=== PATIENT | male | born 1950 | race Caucasian/White ===

== ENCOUNTER 2016-11-18 15:35 | Inpatient (IN) | payer OTHER ==
[2016-11-18] VITALS (7 sets, daily range): BP systolic 132–171; BP diastolic 74–86; PULSE 56–70; TEMP 36.4–37.2; O2SAT 95–97; Ht 177.8 cm; Wt 77.2 kg
[~2016-11-18] VITALS: Ht 177.8 cm; Wt 77.2 kg
[2016-11-18] MEDS ORDERED: LACTATED RINGER'S 1000ML 1,000 ML IV SCH (16:00)
[2016-11-18] MEDS ORDERED: CEFAZOLIN 1000MG/55 ML D5W IV SCH (16:15)
[2016-11-18] MEDS ORDERED: PROPOFOL IV EMULSION 10 MG/ML 20 ML VIAL IV ONE (16:33)
[2016-11-18] MEDS ORDERED: LIDOCAINE HCL 2% 2 ML VIAL (20MG/ML) ONE (16:33)
[2016-11-18] MEDS ORDERED: SUCCINYLCHOLINE CHLORIDE 20 MG/ML 10 ML VIAL IV ONE (16:33)
[2016-11-18] MEDS ORDERED: MIDAZOLAM HCL 1 MG/ML 2ML VIAL ONE (16:36)
[2016-11-18] MEDS ORDERED: FENTANYL CITRATE INJ 50 MCG/1 ML 2 ML VIAL ONE (16:37)
--- NOTE | 2016-11-18 16:50 | History & Physical Bridge Note ---
H&P Re-Evaluation Bridge Note: I have examined the patient, reviewed the History & Physical and in the interval since the performance of the History & Physical I have noted the following changes of clinical significance: No changes noted
[2016-11-18] MEDS ORDERED: CEFAZOLIN SOD 1 GM VIAL ONE (17:09)
[2016-11-18] MEDS ORDERED: OXYCODONE HCL IR 5 MG TAB (IMMEDIATE RELEASE) PO PRN (17:15)
[2016-11-18] MEDS ORDERED: ZOLPIDEM TARTRATE 5 MG TAB PO PRN (17:15)
[2016-11-18] MEDS ORDERED: DiphenhydrAMINE HCL 50 MG/ML VIAL IV PRN (17:15)
[2016-11-18] MEDS ORDERED: SOD PHOSPHATE/SOD BIPHOSPHATE ENEMA 132 ML BTL PR PRN (17:15)
[2016-11-18] MEDS ORDERED: NAPROXEN 250 MG TAB PO PRN (17:15)
[2016-11-18] MEDS ORDERED: ALUMINUM/MAGNESIUM/SIMETH (MAALOX MAX) 30 ML UDC PO PRN (17:15)
[2016-11-18] MEDS ORDERED: METOCLOPRAMIDE HCL INJ 5 MG/ML 2 ML VIAL IV PRN (17:15)
[2016-11-18] MEDS ORDERED: MAGNESIUM HYDROXIDE SUSP 30 ML UDC PO PRN (17:15)
[2016-11-18] MEDS ORDERED: ALBUTEROL HFA 8 GM INHALER INH PRN (17:15)
[2016-11-18] MEDS ORDERED: ONDANSETRON INJ 2 MG/ML 2 ML VIAL IV PRN ×2 (17:15→18:00)
[2016-11-18] MEDS ORDERED: NITROGLYCERIN 0.4 MG SL PER TAB CHARGE SL PRN (17:15)
[2016-11-18] MEDS ORDERED: BISACODYL 10 MG SUPP PR PRN (17:15)
[2016-11-18] MEDS ORDERED: NAPR-1169 PO (17:16)
[2016-11-18] MEDS ORDERED: VITATAB11 PO (17:16)
[2016-11-18] MEDS ORDERED: LINA1TAB PO (17:16)
[2016-11-18] MEDS ORDERED: NTRGSL/4 SL (17:16)
[2016-11-18] MEDS ORDERED: CALC-20 PO (17:16)
[2016-11-18] MEDS ORDERED: FLUO5CRE TOP (17:16)
[2016-11-18] MEDS ORDERED: OMEG10007 PO (17:16)
[2016-11-18] MEDS ORDERED: ASPI81TA28 PO (17:16)
[2016-11-18] MEDS ORDERED: RANI150T3 PO (17:16)
[2016-11-18] MEDS ORDERED: METF500T5 PO (17:16)
[2016-11-18] MEDS ORDERED: ALBUAER INH (17:16)
[2016-11-18] MEDS ORDERED: BISO10TA14 PO (17:16)
[2016-11-18] MEDS ORDERED: MAGN400T6 PO (17:16)
[2016-11-18] MEDS ORDERED: AZEL30SP NAE (17:16)
[2016-11-18] MEDS ORDERED: HYDR-5688 PO (17:16)
[2016-11-18] MEDS ORDERED: BACITRACIN 50,000 UNITS IR ONE (17:33)
--- NOTE | 2016-11-18 17:48 | [facility] Post Operative Brief Note ---
Immediate Operative Summary Operative Date Nov 18, 2016. Pre-Operative Diagnosis infected wound rt foot Post-Operative Diagnosis infected wound right foot Procedure(s) Performed I and d WOUND RIGHT FOOT Surgeon DARYN Cheese Processor Surgeon(s) NONE Estimated Blood Loss 2CC Findings CELLULITIS WOUND RIGHT FOOT Specimens CULTURE AEROBIC ANAEROBIC Complication(s) None Disposition Recovery Room / PACU
[2016-11-18] MEDS ORDERED: MoRPHine SULFATE 10 MG/ML CARP/VIAL IV PRN (18:00)
[2016-11-18] MEDS ORDERED: EpHEDrine SULFATE INJ 50 MG/ML AMP IV PRN (18:00)
[2016-11-18] MEDS ORDERED: ATROPINE SULFATE 0.1 MG/ML 5ML SYR IV PRN (18:00)
[2016-11-18] MEDS ORDERED: FENTANYL CITRATE INJ 50 MCG/1 ML 2 ML VIAL IV PRN (18:00)
--- NOTE | 2016-11-18 18:01 | HISTORY & PHYSICAL EXAMINATION ---
DATE OF ADMISSION: 11/18/2016 HISTORY OF PRESENT ILLNESS: The patient presents, being seen and evaluated with complaints of cellulitis right foot. The patient had bunion surgery 2 weeks prior to feeling well and developed cellulitis progressively over the last week. He has been on Bactrim as well as Keflex, continued to progress with cellulitis, swelling and seropurulent drainage from his foot. The patient presented to the hospital today for admission, intravenous antibiotics infectious disease, I\T\D possible wound VAC, possible open packing. PAST SURGICAL HISTORY: Significant for diabetes, hypertension. ALLERGIES: None. MEDICATIONS: See list. PAST MEDICAL HISTORY: Is otherwise unremarkable. See history of present illness for pertinent positives. PHYSICAL EXAMINATION: HEENT: Otherwise unremarkable. HEART: Irregular at 72 beats per minute. LUNGS: Clear. No rales, rhonchi, or wheezes noted. ABDOMEN: Soft, nontender, nondistended. Bowel sounds are present in all 4 quadrants. RECTAL: No rectal performed. MUSCULOSKELETAL: Consistent with that of a cellulitic draining ostial wound of the first metatarsophalangeal joint of the right foot after having had previous bunion surgery. ASSESSMENT AND PLAN: The patient presents for incision and drainage, intravenous antibiotics, Pulsavac, possible open packing, possible wound VAC pending findings at time of surgery, postoperative pain management, deep venous thrombosis prophylaxis, diabetes management pending findings at time of surgery [facility]
[2016-11-18 18:08] LABS: HEMATOCRIT 38.9 % (42-52)
--- NOTE | 2016-11-18 18:09 | OPERATIVE REPORT ---
DATE OF ADMISSION: 11/18/2016 PREOPERATIVE DIAGNOSIS: Infected wound, right foot first metatarsophalangeal joint. POSTOPERATIVE DIAGNOSIS: Same. PROCEDURE: Incision and drainage, washout, cellulitic infected wound, right foot. SURGEON: Dr. Murray. ANESTHESIA: General. COMPLICATIONS: None. ESTIMATED BLOOD LOSS: 3 mL. HISTORY: The patient presents as a very pleasant 66-year-old white male with complaints of a cellulitic drainage of the wound of his right foot. He had a previous hallux rigidus surgery performed and has drainage purulent and consistent with infection, previous cultures is that of coag negative Staph aureus. DESCRIPTION OF PROCEDURE: After proper draping of the right lower extremity 6 liters of sterile saline solution with bacitracin impregnated were washed through and irrigated through the wound. The wound was irrigated down to stable bed of bleeding tissue. All particulate matter and debris was removed. The wound was packed widely with iodoform gauze and dressed with sterile compressive dressing. The patient was subsequently taken to the recovery room in stable condition.
--- NOTE | 2016-11-18 18:17 | Anesthesiology Progress Note ---
Anesthesia Post Op Note Date & Time Nov 18, 2016 at 18:17 Vital Signs Pain Intensity: 0 Vital Signs Past 12 Hours Date Time Temp Pulse Resp B/P Pulse Ox O2 Delivery O2 Flow Rate FiO2 11/18/16 18:10 79 16 160/91 100 Mask 10 11/18/16 18:00 68 16 166/88 100 Mask 10 11/18/16 17:54 36.2 64 16 159/83 100 10 11/18/16 16:11 36.4 63 20 162/82 97 Room Air Notes Mental Status: alert / awake / arousable Nausea / Vomiting: adequately controlled Pain: adequately controlled Airway Patency, RR, SpO2: stable & adequate BP & HR: stable & adequate Hydration State: stable & adequate Anesthetic Complications: no major complications apparent
[2016-11-18] MEDS: FERROUS GLUCONATE 324 MG TAB PO SCH (20:17)
[2016-11-18] MEDS: POTASSIUM CHLORIDE INJ 10 MEQ in SODIUM CHLORIDE 0.9% 1000ML 1,000 ML IV SCH (20:17)
[2016-11-18] MEDS: SENNA 8.6 MG TAB PO SCH (20:33)
[2016-11-18] MEDS: DOCUSATE SODIUM 100 MG CAP PO SCH (20:34)
[2016-11-18] MEDS: RANITIDINE HCL 150 MG TAB PO SCH (20:34)
[2016-11-18] MEDS ORDERED: CLONIDINE HCL 0.1 MG TAB PO PRN (21:45)
--- NOTE | 2016-11-18 21:53 | Medical Consult ---
Consultation Date of Consultation: Nov 18, 2016. Attending Physician: Anton Murray D.O. Reason for Consultation: Elevated Blood Pressure History of Present Illness Very pleasant 66 year old male with history of CAD, DM, HTN presenting with right foot I&D Patient noted to have development of right foot cellulitis after a bunion surgery. He was placed on courses of Bactrim and Cephalexin with no improvement. Today, Dr. Murray performed a right foot foot I&D under general anesthesias. Cultures were obtained and pending. This evening, BP was noted be elevated at systolic 170s. On exam, patient is seen sitting up in bed, comfortable overall. Right foot pain is better, mild at present. Denies chest pain, dyspnea, headaches, dizziness, nausea. No other symptoms. Family History unremarkable Social History Smoking Status: Never Smoker Smokeless Tobacco Use: No Alcohol Use: none Drug Use: none Allergies Coded Allergies: KATE Inhibitors (Verified Adverse Reaction, Intermediate, COUGH, 11/18/16) Allopurinol (Verified Adverse Reaction, Intermediate, DIZZINESS, 11/18/16) Atorvastatin (Verified Adverse Reaction, Intermediate, MUSCLE ACHES, 11/18) Azithromycin (Verified Adverse Reaction, Intermediate, HIVES, 11/18/16) Carvedilol (Verified Adverse Reaction, Intermediate, SE'S, 11/18/16) Fenofibrate (Verified Adverse Reaction, Intermediate, MYALGIAS, 11/18/16) Irbesartan (Verified Adverse Reaction, Intermediate, LIGHT HEADEDNESS, ) Lansoprazole (Verified Adverse Reaction, Intermediate, BURNING, 11/18/16) Lisinopril (Verified Adverse Reaction, Intermediate, DIZZINESS, 11/18/16) Metoprolol (Verified Adverse Reaction, Intermediate, HAND PAIN , EDEMA, ) Nortriptyline (Verified Adverse Reaction, Intermediate, HIT CHEEKS, ) Olmesartan (Verified Adverse Reaction, Intermediate, DIARRHEA, 11/18/16) Pantoprazole (Verified Adverse Reaction, Intermediate, GI UPSET, 11/18/16) Pitavastatin (Verified Adverse Reaction, Intermediate, MUSCLE ACHES, 11/18) Valsartan (Verified Adverse Reaction, Intermediate, HIVES, 11/18/16) Home Medications as noted in Med Rec Current Inpatient Medications Current Inpatient Medications Medications (Trade) Dose Ordered Sig/Joey Route Start Time Stop Time Status Last Admin Dose Admin Lactated Ringer's 1,000 ml @ 15 mls/hr Q24H IV 11/18/16 16:00 11/18/16 23:59 11/18/16 16:15 15 MLS/HR Potassium Chloride/Sodium Chloride (KCl Inj/Nss 1000ml) 1,005 ml @ 100 mls/hr Q10H3M IV 11/18/16 20:00 12/18/16 19:59 11/18/16 20:17 100 MLS/HR Oxycodone HCl (Roxicodone Immediate Rel Tab) 1-2 TABS FOR PAIN 1 TABLET ... Q4H PRN PO 11/18/16 17:15 12/02/16 17:14 Oxycodone/ Acetaminophen (Percocet 5-325MG Tab) 1-2 TABLETS 1 TABLET ... Q6H PRN PO 11/18/16 17:15 12/02/16 17:14 Magnesium Hydroxide (Milk Of Magnesia Susp) 30 ml Q6H PRN PO 11/18/16 17:15 12/18/16 17:14 Bisacodyl (Dulcolax Supp) 10 mg DAILY PRN DE 11/18/16 17:15 12/18/16 17:14 Sodium Biphosphate/ Sodium Phosphate (Fleet Enema) 132 ml DAILY PRN DE 11/18/16 17:15 12/18/16 17:14 Senna (Senokot Tab) 17.2 mg HS PO 11/18/16 21:00 12/18/16 20:59 11/18/16 20:33 17.2 MG Docusate Sodium (coLACE CAP) 100 mg BID PO 11/18/16 21:00 12/18/16 20:59 11/18/16 20:34 100 MG Diphenhydramine HCl (Benadryl Cap) 25 mg Q8H PRN PO 11/18/16 17:15 12/18/16 17:14 Diphenhydramine HCl (Benadryl Inj) 25 mg Q8H PRN IV 11/18/16 17:15 12/18/16 17:14 Al Hydrox/Mg Hydrox/Simethicone (Maalox Max Susp) 15 ml Q4H PRN PO 11/18/16 17:15 12/18/16 17:14 Zolpidem Tartrate (Ambien Tab) 5 mg HSZ PRN PO 11/18/16 17:15 12/18/16 17:14 Multivitamins (Multivitamin Tab) 1 tab QAM PO 11/19/16 09:00 12/19/16 08:59 Ondansetron HCl (Zofran Inj) 4 mg Q6H PRN IV 11/18/16 17:15 12/18/16 17:14 Metoclopramide HCl (Reglan Inj) 10 mg Q6H PRN IV 11/18/16 17:15 12/18/16 17:14 Ferrous Gluconate (Ferrous Gluconate Tab) 324 mg TIDM PO 11/18/16 20:00 12/18/16 19:59 11/18/16 20:17 324 MG Pantoprazole Sodium 40 mg 40 mg QAM PO 11/19/16 09:00 12/19/16 08:59 Cefazolin Sodium/ Dextrose (Ancef Iv/D5 50ml) 55 ml @ 100 mls/hr Q8H IV 11/19/16 02:00 11/19/16 10:32 Albuterol (Ventolin Hfa Inhaler) 2 puffs Q4H PRN INH 11/18/16 17:15 12/18/16 17:14 Aspirin (Ecotrin Tab) 81 mg DAILY PO 11/19/16 09:00 12/19/16 08:59 Metformin HCl (Glucophage Extended Rel Tab) 500 mg QDD PO 11/19/16 17:45 12/19/16 17:44 Naproxen (Naprosyn Tab) 500 mg BID PRN PO 11/18/16 17:15 12/18/16 17:14 Nitroglycerin (Nitrostat Tab) 0.4 mg UD PRN SL 11/18/16 17:15 12/18/16 17:14 Ranitidine HCl (zANTac TAB) 150 mg BID PO 11/18/16 21:00 12/18/16 20:59 11/18/16 20:34 150 MG Miscellaneous Information (Order Awaiting Action) 1 ea QS N/A 11/19/16 00:00 12/19/16 00:00 Bisoprolol Fumarate (Bisoprolol Fumarate) 10 mg DAILY PO 11/19/16 09:00 12/19/16 08:59 Calcium/Vitamin D (Caltrate Plus Tab) 1 tab DAILY PO 11/19/16 09:00 12/19/16 08:59 Miscellaneous Information (Order Awaiting Action) 1 ea QS N/A 11/19/16 00:00 12/19/16 00:00 Miscellaneous Information (Order Awaiting Action) 1 ea QS N/A 11/19/16 00:00 12/19/16 00:00 Fentanyl Citrate (Fentanyl Inj) 50 mcg UD PRN IV 11/18/16 18:00 11/18/16 23:00 Morphine Sulfate (MoRPHine SULFATE INJ) 4 mg Q5M PRN IV 11/18/16 18:00 11/18/16 23:00 Ondansetron HCl (Zofran Inj) 4 mg Q6 PRN IV 11/18/16 18:00 11/18/16 23:00 Ephedrine Sulfate (EpHEDrine SULFATE INJ) 5 mg Q5M PRN IV 11/18/16 18:00 11/18/16 23:00 Atropine Sulfate (Atropine Sulfate 0.1MG/Ml Inj) 0.5 mg Q1M PRN IV 11/18/16 18:00 11/18/16 23:00 Hydrochlorothiazide (Hydrochlorothiazide Tab) 6.25 mg DAILY PO 11/19/16 09:00 12/19/16 08:59 Review of Systems Constitutional- no fever; no weight loss Eyes- no acute visual changes ENT- no sinus drainage; no pharyngitis Pulmonary- no cough, no wheezing, no shortness of breath Cardiac- no chest pain, no palpitations, no orthopnea, no dependent edema GI- no nausea, no vomiting, no diarrhea, no melena, no hematochezia - no dysuria, no hematuria Musculoskeletal- no arthralgias, no myalgias Derm- no rashes, no new skin lesions, no changing skin lesions Hematologic- no unusual bruising, no unusual bleeding Lymphatics- no adenopathy Endocrine- no polyuria or polydipsia; no heat or cold intolerance Neuro- no headaches, no focal neurologic symptoms Psych- no anxiety, no depression Physical Exam Date Time Temp Pulse Resp B/P Pulse Ox O2 Delivery O2 Flow Rate FiO2 11/18/16 19:20 Room Air 12/21/16 19:20 36.6 70 16 154/83 Room Air 70 11/18/16 18:50 36.6 75 16 155/94 95 Room Air 11/18/16 18:40 36.6 74 16 153/95 95 Room Air 11/18/16 18:30 36.6 74 16 165/87 95 Room Air 11/18/16 18:20 76 16 157/91 96 Room Air 11/18/16 18:10 79 16 160/91 100 Mask 10 11/18/16 18:00 68 16 166/88 100 Mask 10 11/18/16 17:54 36.2 64 16 159/83 100 10 11/18/16 16:11 36.4 63 20 162/82 97 Room Air General Appearance: WD/WN, no apparent distress Head: normocephalic, atraumatic Eyes: normal inspection, PERRL, EOMI, sclerae normal ENT: normal ENT inspection, hearing grossly normal, pharynx normal Neck: supple, no adenopathy, thyroid normal, no JVD, trachea midline Respiratory/Chest: chest non-tender, lungs clear, normal breath sounds, no respiratory distress, no accessory muscle use Cardiovascular: regular rate, rhythm, no edema, no murmur Abdomen/GI: normal bowel sounds, non tender, soft Back: normal inspection Extremities/Musculoskelatal: no calf tenderness, no pedal edema (only left foot examined as right leg was wrapped), + pertinent finding (right foot and lower leg wrapped in dressing) Neurologic/Psych: toby maker II-XII nml as tested, no motor/sensory deficits, alert, normal mood/affect, normal reflexes, oriented x 3 Skin: normal color Lymphatic: no adenopathy Laboratory Results Last 24 Hours Test 11/18/16 18:04 Hemoglobin 13.5 g/dL Hematocrit 38.9 % Assessment & Plan 66 year old male with history of CAD, DM, HTN who is presenting with elevated blood pressure after Right Foot Incision and Drainage this morning. ELEVATED BLOOD PRESSURE HISTORY OF HYPERTENSION likely from post op stress, pain asymptomatic already took his usual Bisoprolol/HCTZ 10/6.25mg po this morning PRN Clonidine for systolic bp > 160 ordered continue usual Bisoprolol/HCTZ decrease IV fluid rate monitor RIGHT FOOT CELLULITIS s/p I&D post op day 0 noted after bunion surgery, did not respond to Bactrim or Keflex wound cultures from 11/16: Group G beta strep, Coag neg staph will transition from Cefazolin to Zosyn IV tonight for broader coverage including gram negatives, anaerobes, Pseudomonas while awaiting ID recommendations DM TYPE 2 usually on Linagliptin and Metformin monitor BSGs AC and HS, ISS ordered HISTORY OF CAD no cardiac symptoms on Aspirin, Bisoprolol Thank you for this consultation. We will follow the patient with you during their hospital stay. You can reach a member of the [facility] Hospitalist Team 21/06 via pager @ [phone].
[2016-11-18] MEDS ORDERED: GLUCOSE 40% GEL 15 GM TUBE PO PRN (22:00)
[2016-11-18] MEDS ORDERED: DEXTROSE 50% 50 ML SYR IV PRN (22:00)
[2016-11-18] MEDS ORDERED: GLUCOSE 10 TABS/TUBE PO PRN (22:00)
[2016-11-18] MEDS ORDERED: GLUCAGON FOR INJ 1 MG VIAL SQ PRN (22:00)
[2016-11-18] MEDS ORDERED: PIPERACILL/TAZOBAC CONSULT ACTIVE PRN (22:15)
[2016-11-18] MEDS ORDERED: PIPERACILL/TAZOBAC IV 3.375 GM in DEXTROSE 5% 100ML IV ONE (22:15)
[2016-11-18 23:40] LABS: BUN/CREATININE RATIO 20.3 (10-20); CALCIUM 8.7 mg/dl (8.5-10.1); CREATININE 1.2 mg/dl (0.60-1.40); POTASSIUM 4.6 mmol/L (3.5-5.1)
[2016-11-19] MEDS ORDERED: CEFAZOLIN IV 1,000 MG in DEXTROSE 5% 50ML 50 ML IV SCH (02:00)
[2016-11-19 03:13] VITALS: BP 124/62; PULSE 57; TEMP 37.2; O2SAT 94
[2016-11-19] MEDS: PIPERACILL/TAZOBAC IV 3.375 GM in DEXTROSE 5% 100ML IV SCH ×3 (03:52→20:23)
[2016-11-19] MEDS: OXYCODONE/ACETAMINOPHEN 5-325 TAB PO PRN (03:57)
[2016-11-19 07:40] LABS: HEMATOCRIT 36.9 % (42-52); MEAN CELL VOLUME 90.2 fL (80-100); MEAN CORPUSCULAR HEMOGLOBIN 31.3 pg (25-34); MEAN CORPUSCULAR HGB CONC 34.7 g/dl (32-36); MEAN PLATELET VOLUME 9.6 fL (7.4-10.4); PLATELET COUNT 136 K/uL (130-400); RED BLOOD COUNT 4.09 M/uL (4.7-6.1); WHITE BLOOD COUNT 5.82 K/uL (4.8-10.8)
[2016-11-19] MEDS: INSULIN ASPART 100 UNITS/ML 3 ML PEN SC SCH ×4 (08:00→21:00)
[2016-11-19 08:10] VITALS: BP 121/67; PULSE 53; TEMP 36.7; O2SAT 94
[2016-11-19 08:10] LABS: BUN/CREATININE RATIO 17.9 (10-20); CALCIUM 8.1 mg/dl (8.5-10.1); CREATININE 1.3 mg/dl (0.60-1.40); POTASSIUM 4.5 mmol/L (3.5-5.1)
--- NOTE | 2016-11-19 08:54 | Orthopedic Progress Note ---
Orthopedic Progress Note Date of Service Nov 19, 2016. Subjective Post OP Day: 1 Reports: feeling well, pain controlled w PO medications, Denies: SOB, calf pain , chest pain, complaints, light headedness, nausea / vomiting Objective calves soft nontender, N/V intact, capillary refill less than 2 sec., dressing C /D/I, A&O x3, toes mobile Date Time Temp Pulse Resp B/P Pulse Ox O2 Delivery O2 Flow Rate FiO2 11/19/16 08:10 36.7 53 16 121/67 94 Room Air 11/19/16 03:13 37.2 57 18 124/62 94 Room Air 11/18/16 22:55 37.1 56 16 132/75 96 Room Air 11/18/16 22:30 37.1 60 17 144/74 96 Room Air 11/18/16 21:15 37.2 63 17 171/86 97 Room Air 11/18/16 20:20 36.9 67 18 171/79 95 Room Air 11/18/16 19:50 36.5 66 16 154/85 95 Room Air 11/18/16 19:20 Room Air 11/18/16 19:20 Room Air 11/18/16 19:20 36.6 70 16 154/83 Room Air 70 11/18/16 18:50 36.6 75 16 155/94 95 Room Air 11/18/16 18:40 36.6 74 16 153/95 95 Room Air 11/18/16 18:30 36.6 74 16 165/87 95 Room Air 11/18/16 18:20 76 16 157/91 96 Room Air 11/18/16 18:10 79 16 160/91 100 Mask 10 11/18/16 18:00 68 16 166/88 100 Mask 10 11/18/16 17:54 36.2 64 16 159/83 100 10 11/18/16 16:11 36.4 63 20 162/82 97 Room Air Laboratory Results 24 Hours: Test 11/18/16 18:04 11/19/16 06:40 Hematocrit 38.9 % 36.9 % Hemoglobin 13.5 g/dL 12.8 g/dL Assessment & Plan Assessment: POD #1 s/p I and d WOUND RIGHT FOOT -will consult Infectious Disease -ice/elevate -plan for repeat I&D tomorrow am, will keep NPO p MN tonight
[2016-11-19] MEDS ORDERED: NON-FORMULARY MEDICATION (Vitamins W/ Lipotropics (Lipoflavonoid) 1 TAB) PO SCH (09:00)
--- NOTE | 2016-11-19 09:32 | Medical Consult ---
Consultation Date of Consultation: Nov 19, 2016. Attending Physician: Anton Murray D.O. Reason for Consultation: Foot infection History of Present Illness 66-year-old male with history of diabetes mellitus and hypertension underwent right bunionectomy approximately 2 weeks ago. Over the last 2-3 days, has noted rapid onset of redness and swelling with severe pain associated with fever and chills with progressive purplish discoloration of his foot. no response to oral antibiotics. He now has been admitted to the hospital and has undergone surgical incision and drainage . Cultures are pending thus far. Prior outpatient cultures growing a group G beta strep, As well as coag- negative staph. Patient currently being treated with IV Zosyn. Feels significantly better after surgery and with antibiotics. Currently afebrile. Denies any other significant systemic complaints. Past Medical/Surgical History PMH: DM, HTN PSH: Bunionectomy Family History Noncontributory Social History Smoking Status: Never Smoker Smokeless Tobacco Use: No Alcohol Use: none Drug Use: none Allergies Coded Allergies: KATE Inhibitors (Verified Adverse Reaction, Intermediate, COUGH, 11/18/16) Allopurinol (Verified Adverse Reaction, Intermediate, DIZZINESS, 11/18/16) Atorvastatin (Verified Adverse Reaction, Intermediate, MUSCLE ACHES, 11/18) Azithromycin (Verified Adverse Reaction, Intermediate, HIVES, 11/18/16) Carvedilol (Verified Adverse Reaction, Intermediate, SE'S, 11/18/16) Fenofibrate (Verified Adverse Reaction, Intermediate, MYALGIAS, 11/18/16) Irbesartan (Verified Adverse Reaction, Intermediate, LIGHT HEADEDNESS, ) Lansoprazole (Verified Adverse Reaction, Intermediate, BURNING, 11/18/16) Lisinopril (Verified Adverse Reaction, Intermediate, DIZZINESS, 11/18/16) Metoprolol (Verified Adverse Reaction, Intermediate, HAND PAIN , EDEMA, ) Nortriptyline (Verified Adverse Reaction, Intermediate, HIT CHEEKS, ) Olmesartan (Verified Adverse Reaction, Intermediate, DIARRHEA, 11/18/16) Pantoprazole (Verified Adverse Reaction, Intermediate, GI UPSET, 11/18/16) Pitavastatin (Verified Adverse Reaction, Intermediate, MUSCLE ACHES, 11/18) Valsartan (Verified Adverse Reaction, Intermediate, HIVES, 11/18/16) Current Inpatient Medications Current Inpatient Medications Medications (Trade) Dose Ordered Sig/Joey Route Start Time Stop Time Status Last Admin Dose Admin Potassium Chloride/Sodium Chloride (KCl Inj/Nss 1000ml) 1,005 ml @ 60 mls/hr [id number] IV 11/18/16 20:00 12/18/16 19:59 11/18/16 20:17 100 MLS/HR Oxycodone HCl (Roxicodone Immediate Rel Tab) 1-2 TABS FOR PAIN 1 TABLET ... Q4H PRN PO 11/18/16 17:15 12/02/16 17:14 Oxycodone/ Acetaminophen (Percocet 5-325MG Tab) 1-2 TABLETS 1 TABLET ... Q6H PRN PO 11/18/16 17:15 12/02/16 17:14 11/19/16 03:57 1 TAB Magnesium Hydroxide (Milk Of Magnesia Susp) 30 ml Q6H PRN PO 11/18/16 17:15 12/18/16 17:14 Bisacodyl (Dulcolax Supp) 10 mg DAILY PRN NE 11/18/16 17:15 12/18/16 17:14 Sodium Biphosphate/ Sodium Phosphate (Fleet Enema) 132 ml DAILY PRN NE 11/18/16 17:15 12/18/16 17:14 Senna (Senokot Tab) 17.2 mg HS PO 11/18/16 21:00 12/18/16 20:59 11/18/16 20:33 17.2 MG Docusate Sodium (coLACE CAP) 100 mg BID PO 11/18/16 21:00 12/18/16 20:59 11/18/16 20:34 100 MG Diphenhydramine HCl (Benadryl Cap) 25 mg Q8H PRN PO 11/18/16 17:15 12/18/16 17:14 Diphenhydramine HCl (Benadryl Inj) 25 mg Q8H PRN IV 11/18/16 17:15 12/18/16 17:14 Al Hydrox/Mg Hydrox/Simethicone (Maalox Max Susp) 15 ml Q4H PRN PO 11/18/16 17:15 12/18/16 17:14 Zolpidem Tartrate (Ambien Tab) 5 mg HSZ PRN PO 11/18/16 17:15 12/18/16 17:14 Multivitamins (Multivitamin Tab) 1 tab QAM PO 11/19/16 09:00 12/19/16 08:59 Ondansetron HCl (Zofran Inj) 4 mg Q6H PRN IV 11/18/16 17:15 12/18/16 17:14 Metoclopramide HCl (Reglan Inj) 10 mg Q6H PRN IV 11/18/16 17:15 12/18/16 17:14 Ferrous Gluconate (Ferrous Gluconate Tab) 324 mg TIDM PO 11/18/16 20:00 12/18/16 19:59 11/18/16 20:17 324 MG Pantoprazole Sodium (Protonix Tab) 40 mg QAM PO 11/19/16 09:00 12/19/16 08:59 Albuterol (Ventolin Hfa Inhaler) 2 puffs Q4H PRN INH 11/18/16 17:15 12/18/16 17:14 Aspirin (Ecotrin Tab) 81 mg DAILY PO 11/19/16 09:00 12/19/16 08:59 Metformin HCl (Glucophage Extended Rel Tab) 500 mg QDD PO 11/19/16 17:45 12/19/16 17:44 Naproxen (Naprosyn Tab) 500 mg BID PRN PO 11/18/16 17:15 12/18/16 17:14 Nitroglycerin (Nitrostat Tab) 0.4 mg UD PRN SL 11/18/16 17:15 12/18/16 17:14 Ranitidine HCl (zANTac TAB) 150 mg BID PO 11/18/16 21:00 12/18/16 20:59 11/18/16 20:34 150 MG Miscellaneous Information (Order Awaiting Action) 1 ea QS N/A 11/19/16 00:00 12/19/16 00:00 Bisoprolol Fumarate (Bisoprolol Fumarate) 10 mg DAILY PO 11/19/16 09:00 12/19/16 08:59 Calcium/Vitamin D (Caltrate Plus Tab) 1 tab DAILY PO 11/19/16 09:00 12/19/16 08:59 Miscellaneous Information (Order Awaiting Action) 1 ea QS N/A 11/19/16 00:00 12/19/16 00:00 Miscellaneous Information (Order Awaiting Action) 1 ea QS N/A 11/19/16 00:00 12/19/16 00:00 Hydrochlorothiazide (Hydrochlorothiazide Tab) 6.25 mg DAILY PO 11/19/16 09:00 12/19/16 08:59 Clonidine HCl (Catapres Tab) 0.1 mg Q6H PRN PO 11/18/16 21:45 12/18/16 21:44 11/18/16 22:00 0.1 MG Piperacillin Sod/ Tazobactam Sod (Consult) 1 ea UD PRN N/A 11/18/16 22:15 12/18/16 22:14 Insulin Aspart (novoLOG ASPART) SLIDING SCALE If C... ACHS SC 11/19/16 08:00 12/19/16 07:59 Glucose (Glucose 40% Gel) 15-30 GRAMS 15 GRAMS... UD PRN PO 11/18/16 22:00 12/18/16 21:59 Glucose (Glucose Chew Tab) 4-8 Tablets 4 Tabl... UD PRN PO 11/18/16 22:00 12/18/16 21:59 Dextrose (Dextrose 50% 50ML Syringe) 25-50ML OF 50% DW IV FOR... UD PRN IV 11/18/16 22:00 12/18/16 21:59 Glucagon 1 mg 1 mg UD PRN SQ 11/18/16 22:00 12/18/16 21:59 Piperacillin Sod/ Tazobactam Sod/ Dextrose (Zosyn Iv/D5 100ml) 115 ml @ 28.75 mls/ hr Q8H IV 11/19/16 04:00 11/29/16 03:59 11/19/16 03:52 28.75 MLS/HR Review of Systems All systems were reviewed and are negative except as per HPI Physical Exam Date Time Temp Pulse Resp B/P Pulse Ox O2 Delivery O2 Flow Rate FiO2 11/19/16 08:10 36.7 53 16 121/67 94 Room Air 11/19/16 03:13 37.2 57 18 124/62 94 Room Air 11/18/16 22:55 37.1 56 16 132/75 96 Room Air 11/18/16 22:30 37.1 60 17 144/74 96 Room Air 11/18/16 21:15 37.2 63 17 171/86 97 Room Air 11/18/16 20:20 36.9 67 18 171/79 95 Room Air 11/18/16 19:50 36.5 66 16 154/85 95 Room Air 11/18/16 19:20 Room Air 11/18/16 19:20 Room Air 11/18/16 19:20 36.6 70 16 154/83 Room Air 70 11/18/16 18:50 36.6 75 16 155/94 95 Room Air 11/18/16 18:40 36.6 74 16 153/95 95 Room Air 11/18/16 18:30 36.6 74 16 165/87 95 Room Air 11/18/16 18:20 76 16 157/91 96 Room Air 11/18/16 18:10 79 16 160/91 100 Mask 10 11/18/16 18:00 68 16 166/88 100 Mask 10 11/18/16 17:54 36.2 64 16 159/83 100 10 11/18/16 16:11 36.4 63 20 162/82 97 Room Air General Appearance: WD/WN, no apparent distress Head: normocephalic, atraumatic Eyes: normal inspection, EOMI, sclerae normal ENT: normal ENT inspection, hearing grossly normal, pharynx normal Neck: supple, no adenopathy, thyroid normal, trachea midline Respiratory/Chest: chest non-tender, lungs clear, normal breath sounds, no respiratory distress Cardiovascular: regular rate, rhythm, no gallop, no murmur Abdomen/GI: normal bowel sounds, non tender, soft, no organomegaly Back: normal inspection, no CVA tenderness Extremities/Musculoskelatal: no calf tenderness, normal capillary refill Neurologic/Psych: alert, oriented x 3 Skin: normal color, no rash, + pertinent finding (surgical dressing in place right foot) Lymphatic: no adenopathy Laboratory Results Date/Time Source Procedure Growth Status 11/18/16 17:27 Abscess Foot Right Gram Stain - Final Resulted 11/18/16 17:27 Abscess Foot Right Bacterial Culture Pending Resulted Last 24 Hours Test 11/18/16 18:04 11/18/16 22:50 11/19/16 06:40 Hemoglobin 13.5 g/dL 12.8 g/dL Hematocrit 38.9 % 36.9 % Sodium Level 134 mmol/L 134 mmol/L Potassium Level 4.6 mmol/L 4.5 mmol/L Chloride Level 101 mmol/L 101 mmol/L Carbon Dioxide Level 25 mmol/L 26 mmol/L Anion Gap 8.0 mmol/L 7.0 mmol/L Blood Urea Nitrogen 24 mg/dl 23 mg/dl Creatinine 1.20 mg/dl 1.30 mg/dl Est Creatinine Clear Calc Drug Dose 61.7 ml/min 56.9 ml/min Estimated GFR () 72.1 65.4 Estimated GFR (Non- 62.2 56.5 BUN/Creatinine Ratio 20.3 17.9 Random Glucose 192 mg/dl 152 mg/dl Calcium Level 8.7 mg/dl 8.1 mg/dl White Blood Count 5.82 K/uL Red Blood Count 4.09 M/uL Mean Corpuscular Volume 90.2 fL Mean Corpuscular Hemoglobin 31.3 pg Mean Corpuscular Hemoglobin Concent 34.7 g/dl RDW Standard Deviation 41.3 fL RDW Coefficient of Variation 12.5 % Platelet Count 136 K/uL Mean Platelet Volume 9.6 fL Assessment & Plan Right foot infection following bunion surgery, likely Group G strep primary pathogen. Patient to be continued on Zosyn pending operative cultures. Likely repeat I+D tomorrow. Will follow and adjust Abx once final cultures available. May want to consider PICC placement as likely will need IV ABX for at least several more days.
[2016-11-19] MEDS: FERROUS GLUCONATE 324 MG TAB PO SCH ×3 (09:48→17:45)
[2016-11-19] MEDS: MULTIVITAMIN TAB PO SCH (09:48)
[2016-11-19] MEDS: DOCUSATE SODIUM 100 MG CAP PO SCH ×2 (09:49→21:19)
[2016-11-19] MEDS: PANTOprazole SOD 40 MG TAB PO SCH (09:49)
[2016-11-19] MEDS: ASPIRIN 81 MG ECTAB PO SCH (09:50)
[2016-11-19] MEDS: CALCIUM 600MG + VIT D 400 IU TAB PO SCH (09:50)
[2016-11-19] MEDS: HYDROCHLOROTHIAZIDE 25 MG TAB PO SCH (09:50)
[2016-11-19] MEDS: BISOPROLOL FUMARATE 5 MG TAB PO SCH (09:51)
[2016-11-19] MEDS: RANITIDINE HCL 150 MG TAB PO SCH ×2 (09:51→21:20)
[2016-11-19 10:39] LABS: ESTIMATED AVERAGE GLUCOSE 134 mg/dl; HA1C FLAG Normal (Normal)
[2016-11-19 11:39] VITALS: BP 161/80; PULSE 56; TEMP 36.7; O2SAT 97
[2016-11-19] MEDS: POTASSIUM CHLORIDE INJ 10 MEQ in SODIUM CHLORIDE 0.9% 1000ML 1,000 ML IV SCH (12:16)
[2016-11-19 15:08] VITALS: BP 124/68; PULSE 56; TEMP 37.2; O2SAT 94
--- NOTE | 2016-11-19 16:42 | Progress Note ---
Internal Med Progress Note Date of Service: Nov 19, 2016. Provider Documentation: SUBJECTIVE: Patient c/o pain in RLE. No fever, chills, chest pain, SOB, nausea, vomiting OBJECTIVE: Vital Signs-as noted below Exam: General Appearance: WD/WN, no apparent distress Neck: supple, no adenopathy, thyroid normal, no JVD, trachea midline Respiratory/Chest: chest non-tender, lungs clear, normal breath sounds, no respiratory distress, no accessory muscle use Cardiovascular: regular rate, rhythm, no edema, no murmur Abdomen/GI: normal bowel sounds, non tender, soft Back: normal inspection Extremities/Musculoskelatal: no calf tenderness, no pedal edema (only left foot examined as right leg was wrapped), + pertinent finding (right foot and lower leg wrapped in dressing) Lab data as noted below. ASSESSMENT & PLAN: 66 year old male with history of CAD, DM, HTN who is presenting with elevated blood pressure after Right Foot Incision and Drainage this morning. HYPERTENSION likely from post op stress, pain -PRN Clonidine for systolic bp > 160 ordered -Continue usual Bisoprolol/HCTZ - IV fluid rate -monitor RIGHT FOOT CELLULITIS s/p I&D post op day 0 -noted after bunion surgery, did not respond to Bactrim or Keflex -wound cultures from 11/16: Group G beta strep, Coag neg staph -Continue with Zosyn IV while awaiting operative wound cxs. For I & D again tomorrow -Per ID, may need PICC line DM TYPE 2 usually on Linagliptin and Metformin -monitor BSGs AC and HS, ISS ordered HISTORY OF CAD -no cardiac symptoms -on Aspirin, Bisoprolol DVT PROPHYLAXIS SCDS For I & D in AM DISPOSITION Per primary team Vital Signs: Date Time Temp Pulse Resp B/P Pulse Ox O2 Delivery O2 Flow Rate FiO2 11/19/16 15:08 37.2 56 18 124/68 94 Room Air 11/19/16 11:39 36.7 56 16 161/80 97 Room Air 11/19/16 08:10 36.7 53 16 121/67 94 Room Air 11/19/16 07:45 Room Air 11/19/16 03:13 37.2 57 18 124/62 94 Room Air 11/18/16 22:55 37.1 56 16 132/75 96 Room Air 11/18/16 22:30 37.1 60 17 144/74 96 Room Air 11/18/16 21:15 37.2 63 17 171/86 97 Room Air 11/18/16 20:20 36.9 67 18 171/79 95 Room Air 11/18/16 19:50 36.5 66 16 154/85 95 Room Air 11/18/16 19:20 Room Air 11/18/16 19:20 Room Air 11/18/16 19:20 36.6 70 16 154/83 Room Air 70 11/18/16 18:50 36.6 75 16 155/94 95 Room Air 11/18/16 18:40 36.6 74 16 153/95 95 Room Air 11/18/16 18:30 36.6 74 16 165/87 95 Room Air 11/18/16 18:20 76 16 157/91 96 Room Air 11/18/16 18:10 79 16 160/91 100 Mask 10 11/18/16 18:00 68 16 166/88 100 Mask 10 11/18/16 17:54 36.2 64 16 159/83 100 10 Lab Results: Results Past 24 Hours Test 11/18/16 18:04 11/18/16 22:50 11/19/16 06:40 11/19/16 08:06 Range/Units Hemoglobin 13.5 12.8 14.0-18.0 g/dL Hematocrit 38.9 36.9 42-52 % Sodium Level 134 134 136-145 mmol/L Potassium Level 4.6 4.5 3.5-5.1 mmol/L Chloride Level 101 101 98-107 mmol/L Carbon Dioxide Level 25 26 21-32 mmol/L Anion Gap 8.0 7.0 3-11 mmol/L Blood Urea Nitrogen 24 23 7-18 mg/dl Creatinine 1.20 1.30 0.60-1.40 mg/dl Est Creatinine Clear Calc Drug Dose 61.7 56.9 ml/min Estimated GFR () 72.1 65.4 Estimated GFR (Non- 62.2 56.5 BUN/Creatinine Ratio 20.3 17.9 10-20 Random Glucose 192 152 70-99 mg/dl Calcium Level 8.7 8.1 8.5-10.1 mg/dl White Blood Count 5.82 4.8-10.8 K/uL Red Blood Count 4.09 4.7-6.1 M/uL Mean Corpuscular Volume 90.2 80-100 fL Mean Corpuscular Hemoglobin 31.3 25-34 pg Mean Corpuscular Hemoglobin Concent 34.7 32-36 g/dl RDW Standard Deviation 41.3 36.4-46.3 fL RDW Coefficient of Variation 12.5 11.5-14.5 % Platelet Count 136 130-400 K/uL Mean Platelet Volume 9.6 7.4-10.4 fL Estimated Average Glucose 134 mg/dl Hemoglobin A1c 6.3 4.5-5.6 % Bedside Glucose 98 70-99 mg/dl Test 11/19/16 11:56 Range/Units Bedside Glucose 133 70-99 mg/dl Microbiology Results 11/18/16 Gram Stain - Final, Resulted 11/18/16 Bacterial Culture - Preliminary, Resulted NO GROWTH TO DATE.
[2016-11-19] MEDS: METFORMIN HCL 500 MG TABCR PO SCH (17:48)
[2016-11-19 18:51] VITALS: BP 142/77; PULSE 53; TEMP 37; O2SAT 94
[2016-11-19] MEDS: SENNA 8.6 MG TAB PO SCH (21:00)
[2016-11-19 23:28] VITALS: BP 143/77; PULSE 56; TEMP 36.8; O2SAT 96
[2016-11-20] VITALS (8 sets, daily range): BP systolic 132–160; BP diastolic 79–88; PULSE 55–68; TEMP 36.4–37.5; O2SAT 93–95
[2016-11-20] MEDS ORDERED: NURSING DECISION MEDICATION ORDER SCH ×2 (01:15→15:00)
[2016-11-20] MEDS: PIPERACILL/TAZOBAC IV 3.375 GM in DEXTROSE 5% 100ML IV SCH ×3 (03:39→20:37)
[2016-11-20] MEDS: POTASSIUM CHLORIDE INJ 10 MEQ in SODIUM CHLORIDE 0.9% 1000ML 1,000 ML IV SCH ×2 (03:42→20:42)
[2016-11-20] MEDS: INSULIN ASPART 100 UNITS/ML 3 ML PEN SC SCH ×4 (06:00→20:39)
[2016-11-20 06:16] LABS: HEMATOCRIT 39.4 % (42-52); MEAN CELL VOLUME 89.3 fL (80-100); MEAN CORPUSCULAR HEMOGLOBIN 31.1 pg (25-34); MEAN CORPUSCULAR HGB CONC 34.8 g/dl (32-36); MEAN PLATELET VOLUME 9.4 fL (7.4-10.4); PLATELET COUNT 135 K/uL (130-400); RED BLOOD COUNT 4.41 M/uL (4.7-6.1); WHITE BLOOD COUNT 5.75 K/uL (4.8-10.8)
[2016-11-20 06:50] LABS: BUN/CREATININE RATIO 16.1 (10-20); CALCIUM 8.9 mg/dl (8.5-10.1); CREATININE 1.4 mg/dl (0.60-1.40); POTASSIUM 4.2 mmol/L (3.5-5.1)
[2016-11-20] MEDS ORDERED: FENTANYL CITRATE INJ 50 MCG/1 ML 2 ML VIAL ONE (07:10)
[2016-11-20] MEDS ORDERED: MIDAZOLAM HCL 1 MG/ML 2ML VIAL ONE (07:10)
[2016-11-20] MEDS: FERROUS GLUCONATE 324 MG TAB PO SCH ×3 (08:24→18:06)
[2016-11-20] MEDS ORDERED: EpHEDrine SULFATE INJ 50 MG/ML AMP IV PRN (09:00)
[2016-11-20] MEDS ORDERED: ONDANSETRON INJ 2 MG/ML 2 ML VIAL IV PRN ×2 (09:00→11:00)
[2016-11-20] MEDS ORDERED: ATROPINE SULFATE 0.1 MG/ML 5ML SYR IV PRN (09:00)
[2016-11-20] MEDS ORDERED: PROPOFOL IV EMULSION 10 MG/ML 20 ML VIAL IV ONE (10:13)
[2016-11-20] MEDS ORDERED: ONDANSETRON INJ 2 MG/ML 2 ML VIAL ONE (10:13)
[2016-11-20] MEDS ORDERED: LIDOCAINE HCL 2% 2 ML VIAL (20MG/ML) ONE (10:13)
[2016-11-20] MEDS ORDERED: POTASSIUM CHLORIDE INJ 10 MEQ in SODIUM CHLORIDE 0.9% 1000ML 1,000 ML IV SCH (10:47)
[2016-11-20] MEDS ORDERED: BISACODYL 10 MG SUPP PR PRN (11:00)
[2016-11-20] MEDS ORDERED: DiphenhydrAMINE HCL 50 MG/ML VIAL IV PRN (11:00)
[2016-11-20] MEDS ORDERED: ALUMINUM/MAGNESIUM/SIMETH (MAALOX MAX) 30 ML UDC PO PRN (11:00)
[2016-11-20] MEDS ORDERED: METOCLOPRAMIDE HCL INJ 5 MG/ML 2 ML VIAL IV PRN (11:00)
[2016-11-20] MEDS ORDERED: OXYCODONE/ACETAMINOPHEN 5-325 TAB PO PRN (11:00)
[2016-11-20] MEDS ORDERED: SOD PHOSPHATE/SOD BIPHOSPHATE ENEMA 132 ML BTL PR PRN (11:00)
[2016-11-20] MEDS ORDERED: ZOLPIDEM TARTRATE 5 MG TAB PO PRN (11:00)
[2016-11-20] MEDS ORDERED: MAGNESIUM HYDROXIDE SUSP 30 ML UDC PO PRN (11:00)
[2016-11-20] MEDS ORDERED: BACITRACIN 50,000 UNITS IR ONE (11:06)
[2016-11-20] MEDS: FENTANYL CITRATE INJ 50 MCG/1 ML 2 ML VIAL IV PRN ×2 (11:20→11:25)
--- NOTE | 2016-11-20 11:21 | OPERATIVE REPORT ---
DATE OF OPERATION: 11/20/2016 PREOPERATIVE DIAGNOSIS: Infected wound, right foot first metatarsophalangeal joint. POSTOPERATIVE DIAGNOSIS: Same. PROCEDURE: I\T\D of wound with placement of wound VAC, right first metatarsophalangeal joint. SURGEON: Dr. Murray. ANESTHESIA: General. COMPLICATIONS: None. GROSS FINDINGS: The patient is a very pleasant 66-year-old white male who presents. 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 The wound was markedly improved today as compared to Wednesday. After thorough irrigation and debridement of 6 liters of sterile saline solution with bacitracin, the wound was irrigated. Subsequently, a wound VAC was placed on the wound and the patient was subsequently taken to the recovery room in stable condition. I attest to the content of the Intraoperative Record and any orders documented therein. Any exceptio ns are noted below.
[2016-11-20] MEDS ORDERED: FERROUS GLUCONATE 324 MG TAB PO SCH (12:30)
--- NOTE | 2016-11-20 12:48 | Anesthesiology Progress Note ---
Anesthesia Post Op Note Date & Time Nov 20, 2016 at 12:47 Vital Signs Pain Intensity: 0.0 Vital Signs Past 12 Hours Date Time Temp Pulse Resp B/P Pulse Ox O2 Delivery O2 Flow Rate FiO2 11/20/16 12:25 36.4 64 16 152/82 95 Nasal Cannula 2.0 11/20/16 11:50 95 Nasal Cannula 2.0 11/20/16 11:50 95 Nasal Cannula 2.0 11/20/16 11:50 37.2 65 16 150/87 95 Nasal Cannula 2.0 11/20/16 11:44 63 154/90 98 Nasal Cannula 2 11/20/16 11:30 37.8 63 158/86 97 Nasal Cannula 2 11/20/16 11:20 64 158/90 98 Nasal Cannula 2 11/20/16 11:10 62 160/87 100 Mask 10 11/20/16 11:00 67 151/92 99 Mask 10 11/20/16 10:54 36.4 16 166/98 100 Mask 10 11/20/16 07:46 37.5 62 16 160/81 94 Room Air Notes Mental Status: alert / awake / arousable, participated in evaluation Pt Amnestic to Procedure: Yes Nausea / Vomiting: adequately controlled Pain: adequately controlled Airway Patency, RR, SpO2: stable & adequate BP & HR: stable & adequate Hydration State: stable & adequate Anesthetic Complications: no major complications apparent
[2016-11-20] MEDS: ASPIRIN 81 MG ECTAB PO SCH (13:00)
[2016-11-20] MEDS: CALCIUM 600MG + VIT D 400 IU TAB PO SCH (13:00)
[2016-11-20] MEDS: RANITIDINE HCL 150 MG TAB PO SCH ×2 (13:01→20:37)
[2016-11-20] MEDS: MULTIVITAMIN TAB PO SCH (13:01)
[2016-11-20] MEDS: PANTOprazole SOD 40 MG TAB PO SCH (13:01)
[2016-11-20] MEDS: HYDROCHLOROTHIAZIDE 25 MG TAB PO SCH (13:02)
[2016-11-20] MEDS: BISOPROLOL FUMARATE 5 MG TAB PO SCH (13:03)
[2016-11-20] MEDS: DOCUSATE SODIUM 100 MG CAP PO SCH ×2 (13:03→20:37)
--- NOTE | 2016-11-20 13:44 | Progress Note ---
Internal Med Progress Note Date of Service: Nov 20, 2016. Provider Documentation: SUBJECTIVE: Patient c/o pain in RLE. No fever, chills, chest pain, SOB, nausea, vomiting S/P RLE foot I and D and wound vac placement OBJECTIVE: Vital Signs-as noted below Exam: General Appearance: WD/WN, no apparent distress Neck: supple, no adenopathy, thyroid normal, no JVD, trachea midline Respiratory/Chest: chest non-tender, lungs clear, normal breath sounds, no respiratory distress, no accessory muscle use Cardiovascular: regular rate, rhythm, no edema, no murmur Abdomen/GI: normal bowel sounds, non tender, soft Back: normal inspection Extremities/Musculoskelatal: no calf tenderness, no pedal edema (only left foot examined as right leg was wrapped), + pertinent finding (right foot with wound vac) Lab data as noted below. ASSESSMENT & PLAN: 66 year old male with history of CAD, DM, HTN who is presenting with elevated blood pressure after Right Foot Incision and Drainage this morning. HYPERTENSION likely from post op stress, pain, better now -PRN Clonidine for systolic bp > 160 ordered -Continue usual Bisoprolol/HCTZ - IV fluid rate -monitor RIGHT FOOT CELLULITIS s/p I&D post op day on S/P I/T/D with wound vac today 11/20/16 -noted after bunion surgery, did not respond to Bactrim or Keflex -wound cultures from 11/16: Group G beta strep, Coag neg staph -Continue with Zosyn IV while awaiting operative wound cxs from today. From - cultures negative -Per ID, may need PICC line DM TYPE 2 usually on Linagliptin and Metformin -monitor BSGs AC and HS, ISS ordered HISTORY OF CAD -no cardiac symptoms -on Aspirin, Bisoprolol DVT PROPHYLAXIS SCDS For I & D in AM DISPOSITION Per primary team Vital Signs: Date Time Temp Pulse Resp B/P Pulse Ox O2 Delivery O2 Flow Rate FiO2 11/20/16 12:50 37.0 68 16 155/88 94 Room Air 11/20/16 12:25 36.4 64 16 152/82 95 Nasal Cannula 2.0 11/20/16 11:50 95 Nasal Cannula 2.0 11/20/16 11:50 95 Nasal Cannula 2.0 11/20/16 11:50 37.2 65 16 150/87 95 Nasal Cannula 2.0 11/20/16 11:44 63 154/90 98 Nasal Cannula 2 11/20/16 11:30 37.8 63 158/86 97 Nasal Cannula 2 11/20/16 11:20 64 158/90 98 Nasal Cannula 2 11/20/16 11:10 62 160/87 100 Mask 10 11/20/16 11:00 67 151/92 99 Mask 10 11/20/16 10:54 36.4 16 166/98 100 Mask 10 11/20/16 07:46 37.5 62 16 160/81 94 Room Air 11/20/16 00:15 Room Air 11/19/16 23:28 36.8 56 18 143/77 96 Room Air 11/19/16 18:51 37.0 53 18 142/77 94 Room Air 11/19/16 16:00 Room Air 11/19/16 15:08 37.2 56 18 124/68 94 Room Air Lab Results: Results Past 24 Hours Test 11/19/16 16:46 11/19/16 20:37 11/20/16 05:50 11/20/16 05:57 Range/Units Bedside Glucose 133 103 107 70-99 mg/dl White Blood Count 5.75 4.8-10.8 K/uL Red Blood Count 4.41 4.7-6.1 M/uL Hemoglobin 13.7 14.0-18.0 g/dL Hematocrit 39.4 42-52 % Mean Corpuscular Volume 89.3 80-100 fL Mean Corpuscular Hemoglobin 31.1 25-34 pg Mean Corpuscular Hemoglobin Concent 34.8 32-36 g/dl RDW Standard Deviation 39.8 36.4-46.3 fL RDW Coefficient of Variation 12.5 11.5-14.5 % Platelet Count 135 130-400 K/uL Mean Platelet Volume 9.4 7.4-10.4 fL Sodium Level 136 136-145 mmol/L Potassium Level 4.2 3.5-5.1 mmol/L Chloride Level 101 98-107 mmol/L Carbon Dioxide Level 26 21-32 mmol/L Anion Gap 9.0 3-11 mmol/L Blood Urea Nitrogen 23 7-18 mg/dl Creatinine 1.40 0.60-1.40 mg/dl Est Creatinine Clear Calc Drug Dose 52.9 ml/min Estimated GFR () 59.8 Estimated GFR (Non- 51.6 BUN/Creatinine Ratio 16.1 10-20 Random Glucose 114 70-99 mg/dl Calcium Level 8.9 8.5-10.1 mg/dl Test 11/20/16 11:05 Range/Units Bedside Glucose 96 70-99 mg/dl Microbiology Results 11/20/16 Gram Stain, Received Pending 11/20/16 Bacterial Culture, Received Pending 11/20/16 Gram Stain, Received Pending 11/20/16 Bacterial Culture, Received Pending
[2016-11-20] MEDS: OXYCODONE/ACETAMINOPHEN 5-325 TAB PO PRN (15:42)
[2016-11-20] MEDS: METFORMIN HCL 500 MG TABCR PO SCH (18:06)
--- NOTE | 2016-11-20 20:00 | Infectious Disease Progress Nt ---
Progress Note Date of Service Nov 20, 2016. Subjective Pt evaluation today including: conversation w/ patient, physical exam, chart review, lab review, review of studies, conversation w/ business operations consultant, review of inpatient medication list patient offering no new complaints today. Pain control. Remains afebrile. Hemodynamically stable. Operative cultures negative to date. All Other Systems: Reviewed and Negative Medications Current Inpatient Medications Medications (Trade) Dose Ordered Sig/Joey Route Start Time Stop Time Status Last Admin Dose Admin Potassium Chloride/Sodium Chloride (KCl Inj/Nss 1000ml) 1,005 ml @ 60 mls/hr [id number] IV 11/18/16 20:00 12/18/16 19:59 11/20/16 03:42 60 MLS/HR Oxycodone HCl (Roxicodone Immediate Rel Tab) 1-2 TABS FOR PAIN 1 TABLET ... Q4H PRN PO 11/18/16 17:15 12/02/16 17:14 Oxycodone/ Acetaminophen (Percocet 5-325MG Tab) 1-2 TABLETS 1 TABLET ... Q6H PRN PO 11/18/16 17:15 12/02/16 17:14 11/20/16 15:42 2 TAB Magnesium Hydroxide (Milk Of Magnesia Susp) 30 ml Q6H PRN PO 11/18/16 17:15 12/18/16 17:14 Bisacodyl (Dulcolax Supp) 10 mg DAILY PRN SC 11/18/16 17:15 12/18/16 17:14 Sodium Biphosphate/ Sodium Phosphate (Fleet Enema) 132 ml DAILY PRN SC 11/18/16 17:15 12/18/16 17:14 Senna (Senokot Tab) 17.2 mg HS PO 11/18/16 21:00 12/18/16 20:59 11/18/16 20:33 17.2 MG Docusate Sodium (coLACE CAP) 100 mg BID PO 11/18/16 21:00 12/18/16 20:59 11/20/16 13:03 100 MG Diphenhydramine HCl (Benadryl Cap) 25 mg Q8H PRN PO 11/18/16 17:15 12/18/16 17:14 Al Hydrox/Mg Hydrox/Simethicone (Maalox Max Susp) 15 ml Q4H PRN PO 11/18/16 17:15 12/18/16 17:14 Zolpidem Tartrate (Ambien Tab) 5 mg HSZ PRN PO 11/18/16 17:15 12/18/16 17:14 Multivitamins (Multivitamin Tab) 1 tab QAM PO 11/19/16 09:00 12/19/16 08:59 11/20/16 13:01 1 TAB Ondansetron HCl (Zofran Inj) 4 mg Q6H PRN IV 11/18/16 17:15 12/18/16 17:14 Metoclopramide HCl (Reglan Inj) 10 mg Q6H PRN IV 11/18/16 17:15 12/18/16 17:14 Ferrous Gluconate (Ferrous Gluconate Tab) 324 mg TIDM PO 11/18/16 20:00 12/18/16 19:59 11/20/16 18:06 324 MG Pantoprazole Sodium (Protonix Tab) 40 mg QAM PO 11/19/16 09:00 12/19/16 08:59 11/20/16 13:01 40 MG Albuterol (Ventolin Hfa Inhaler) 2 puffs Q4H PRN INH 11/18/16 17:15 12/18/16 17:14 Aspirin (Ecotrin Tab) 81 mg DAILY PO 11/19/16 09:00 12/19/16 08:59 11/20/16 13:00 81 MG Metformin HCl (Glucophage Extended Rel Tab) 500 mg QDD PO 11/19/16 17:45 12/19/16 17:44 11/20/16 18:06 500 MG Naproxen (Naprosyn Tab) 500 mg BID PRN PO 11/18/16 17:15 12/18/16 17:14 11/19/16 12:32 500 MG Nitroglycerin (Nitrostat Tab) 0.4 mg UD PRN SL 11/18/16 17:15 12/18/16 17:14 Ranitidine HCl (zANTac TAB) 150 mg BID PO 11/18/16 21:00 12/18/16 20:59 11/20/16 13:01 150 MG Miscellaneous Information (Order Awaiting Action) 1 ea QS N/A 11/19/16 00:00 12/19/16 00:00 Bisoprolol Fumarate (Bisoprolol Fumarate) 10 mg DAILY PO 11/19/16 09:00 12/19/16 08:59 11/20/16 13:03 10 MG Calcium/Vitamin D (Caltrate Plus Tab) 1 tab DAILY PO 11/19/16 09:00 12/19/16 08:59 11/20/16 13:00 1 TAB Miscellaneous Information (Order Awaiting Action) 1 ea QS N/A 11/19/16 00:00 12/19/16 00:00 Miscellaneous Information (Order Awaiting Action) 1 ea QS N/A 11/19/16 00:00 12/19/16 00:00 Hydrochlorothiazide (Hydrochlorothiazide Tab) 6.25 mg DAILY PO 11/19/16 09:00 12/19/16 08:59 11/20/16 13:02 6.25 MG Clonidine HCl (Catapres Tab) 0.1 mg Q6H PRN PO 11/18/16 21:45 12/18/16 21:44 11/18/16 22:00 0.1 MG Piperacillin Sod/ Tazobactam Sod (Consult) 1 ea UD PRN N/A 11/18/16 22:15 12/18/16 22:14 Glucose (Glucose 40% Gel) 15-30 GRAMS 15 GRAMS... UD PRN PO 11/18/16 22:00 12/18/16 21:59 Glucose (Glucose Chew Tab) 4-8 Tablets 4 Tabl... UD PRN PO 11/18/16 22:00 12/18/16 21:59 Dextrose (Dextrose 50% 50ML Syringe) 25-50ML OF 50% DW IV FOR... UD PRN IV 11/18/16 22:00 12/18/16 21:59 Glucagon 1 mg 1 mg UD PRN SQ 11/18/16 22:00 12/18/16 21:59 Piperacillin Sod/ Tazobactam Sod/ Dextrose (Zosyn Iv/D5 100ml) 115 ml @ 28.75 mls/ hr Q8H IV 11/19/16 04:00 11/29/16 03:59 11/20/16 13:21 28.75 MLS/HR Diphenhydramine HCl (Benadryl Inj) 25 mg Q8H PRN IV 11/20/16 11:00 12/20/16 10:59 Insulin Aspart (novoLOG ASPART) SLIDING SCALE If C... ACHS SC 11/20/16 17:15 12/20/16 17:14 Objective Vital Signs Date Time Temp Pulse Resp B/P Pulse Ox O2 Delivery O2 Flow Rate FiO2 11/20/16 15:30 94 Room Air 11/20/16 15:06 37.4 62 16 132/79 94 Room Air 11/20/16 13:48 37.2 64 18 137/87 95 Room Air 11/20/16 12:50 37.0 68 16 155/88 94 Room Air 11/20/16 12:25 36.4 64 16 152/82 95 Nasal Cannula 2.0 11/20/16 11:50 95 Nasal Cannula 2.0 11/20/16 11:50 95 Nasal Cannula 2.0 11/20/16 11:50 37.2 65 16 150/87 95 Nasal Cannula 2.0 11/20/16 11:44 63 154/90 98 Nasal Cannula 2 11/20/16 11:30 37.8 63 158/86 97 Nasal Cannula 2 11/20/16 11:20 64 158/90 98 Nasal Cannula 2 11/20/16 11:10 62 160/87 100 Mask 10 11/20/16 11:00 67 151/92 99 Mask 10 11/20/16 10:54 36.4 16 166/98 100 Mask 10 11/20/16 07:46 37.5 62 16 160/81 94 Room Air 11/20/16 00:15 Room Air 11/19/16 23:28 36.8 56 18 143/77 96 Room Air Physical Exam General Appearance: WD/WN, no apparent distress Eyes: normal inspection, EOMI, sclerae normal ENT: normal ENT inspection, pharynx normal Neck: supple, no adenopathy, trachea midline Respiratory/Chest: chest non-tender, lungs clear, normal breath sounds, no respiratory distress Cardiovascular: regular rate, rhythm, no gallop, no murmur Abdomen: normal bowel sounds, non tender, soft, no organomegaly Extremities: non-tender, normal capillary refill Neurologic/Psychiatric: alert, oriented x 3 Skin: normal color, no rash, + pertinent finding ( Surgical dressing intact) Lymphatic: no adenopathy Laboratory Results Last 24 Hours Test 11/19/16 20:37 11/20/16 05:50 11/20/16 05:57 11/20/16 11:05 Bedside Glucose 103 mg/dl 107 mg/dl 96 mg/dl White Blood Count 5.75 K/uL Red Blood Count 4.41 M/uL Hemoglobin 13.7 g/dL Hematocrit 39.4 % Mean Corpuscular Volume 89.3 fL Mean Corpuscular Hemoglobin 31.1 pg Mean Corpuscular Hemoglobin Concent 34.8 g/dl RDW Standard Deviation 39.8 fL RDW Coefficient of Variation 12.5 % Platelet Count 135 K/uL Mean Platelet Volume 9.4 fL Sodium Level 136 mmol/L Potassium Level 4.2 mmol/L Chloride Level 101 mmol/L Carbon Dioxide Level 26 mmol/L Anion Gap 9.0 mmol/L Blood Urea Nitrogen 23 mg/dl Creatinine 1.40 mg/dl Est Creatinine Clear Calc Drug Dose 52.9 ml/min Estimated GFR () 59.8 Estimated GFR (Non- 51.6 BUN/Creatinine Ratio 16.1 Random Glucose 114 mg/dl Calcium Level 8.9 mg/dl Test 11/20/16 16:39 Bedside Glucose 137 mg/dl Assessment and Plan Right foot infection following bunion surgery, likely Group G strep primary pathogen. Post repeat incision and drainage, with repeat cultures pending. Hopefully, patient can be transitioned to IV ceftriaxone 2 grams daily for 7-10 days to allow outpatient therapy await final culture results. Case discussed with hospitalist service.
[2016-11-20] MEDS: SENNA 8.6 MG TAB PO SCH (20:37)
[2016-11-20] MEDS ORDERED: SENNA 8.6 MG TAB PO SCH (21:00)
[2016-11-20] MEDS ORDERED: DOCUSATE SODIUM 100 MG CAP PO SCH (21:00)
[2016-11-21 03:03] VITALS: BP 154/81; PULSE 55; TEMP 37.1; O2SAT 93
[2016-11-21] MEDS: PIPERACILL/TAZOBAC IV 3.375 GM in DEXTROSE 5% 100ML IV SCH ×3 (03:40→19:59)
[2016-11-21 06:09] LABS: HEMATOCRIT 39.3 % (42-52); MEAN CELL VOLUME 90.3 fL (80-100); MEAN CORPUSCULAR HEMOGLOBIN 31.7 pg (25-34); MEAN CORPUSCULAR HGB CONC 35.1 g/dl (32-36); PLATELET COUNT 168 K/uL (130-400); RED BLOOD COUNT 4.35 M/uL (4.7-6.1); WHITE BLOOD COUNT 5.75 K/uL (4.8-10.8)
[2016-11-21 06:44] LABS: BUN/CREATININE RATIO 16.3 (10-20); CREATININE 1.2 mg/dl (0.60-1.40); POTASSIUM 4.1 mmol/L (3.5-5.1)
[2016-11-21 07:50] VITALS: BP 137/88; PULSE 58; TEMP 37.3; O2SAT 97
[2016-11-21] MEDS: ASPIRIN 81 MG ECTAB PO SCH (08:41)
[2016-11-21] MEDS: HYDROCHLOROTHIAZIDE 25 MG TAB PO SCH (08:42)
[2016-11-21] MEDS: DOCUSATE SODIUM 100 MG CAP PO SCH ×2 (08:42→20:49)
[2016-11-21] MEDS: FERROUS GLUCONATE 324 MG TAB PO SCH ×3 (08:42→17:28)
[2016-11-21] MEDS: CALCIUM 600MG + VIT D 400 IU TAB PO SCH (08:42)
[2016-11-21] MEDS: MULTIVITAMIN TAB PO SCH (08:43)
[2016-11-21] MEDS: BISOPROLOL FUMARATE 5 MG TAB PO SCH (08:43)
[2016-11-21] MEDS: RANITIDINE HCL 150 MG TAB PO SCH ×2 (08:43→20:49)
[2016-11-21] MEDS: PANTOprazole SOD 40 MG TAB PO SCH (08:43)
[2016-11-21] MEDS: INSULIN ASPART 100 UNITS/ML 3 ML PEN SC SCH ×4 (08:46→21:01)
[2016-11-21] MEDS ORDERED: MULTIVITAMIN TAB PO SCH (09:00)
[2016-11-21] MEDS ORDERED: PANTOprazole SOD 40 MG TAB PO SCH (09:00)
--- NOTE | 2016-11-21 09:04 | Progress Note ---
Orthopedic SOAP Note Subjective Date of Service: Nov 21, 2016. Reports: feeling well, pain controlled w PO medications Problem List infected wound 1st MTPJ Objective erythema around medial foot MTPJ area,normal circulation ,pus leaking out around edge of foam of wound vac Date Time Temp Pulse Resp B/P Pulse Ox O2 Delivery O2 Flow Rate FiO2 11/21/16 07:50 37.3 58 18 137/88 97 Room Air 11/21/16 03:03 37.1 55 18 154/81 93 Room Air 11/20/16 23:29 37.1 55 18 159/82 93 Room Air 11/20/16 19:40 Room Air 11/20/16 15:30 94 Room Air 11/20/16 15:06 37.4 62 16 132/79 94 Room Air 11/20/16 13:48 37.2 64 18 137/87 95 Room Air 11/20/16 12:50 37.0 68 16 155/88 94 Room Air 11/20/16 12:25 36.4 64 16 152/82 95 Nasal Cannula 2.0 11/20/16 11:50 95 Nasal Cannula 2.0 11/20/16 11:50 95 Nasal Cannula 2.0 11/20/16 11:50 37.2 65 16 150/87 95 Nasal Cannula 2.0 11/20/16 11:44 63 154/90 98 Nasal Cannula 2 11/20/16 11:30 37.8 63 158/86 97 Nasal Cannula 2 11/20/16 11:20 64 158/90 98 Nasal Cannula 2 11/20/16 11:10 62 160/87 100 Mask 10 11/20/16 11:00 67 151/92 99 Mask 10 11/20/16 10:54 36.4 16 166/98 100 Mask 10 Laboratory Results 24 Hours: Test 11/21/16 05:23 Hematocrit 39.3 % Hemoglobin 13.8 g/dL Assessment POD #1 s/p repeat I and d WOUND RIGHT FOOT wound vac leaking -ice/elevate -plan consult wound nurse to reapply wound vac,cultures neg to date s/p last surgery washout,continue IV ABX per ID service Plan wound nurse consult
--- NOTE | 2016-11-21 10:07 | Progress Note ---
Internal Med Progress Note Date of Service: Nov 21, 2016. Provider Documentation: SUBJECTIVE: Patient c/o pain in RLE. No fever, chills, chest pain, SOB, nausea, vomiting S/P RLE foot I and D and wound vac placement OBJECTIVE: Vital Signs-as noted below Exam: General Appearance: WD/WN, no apparent distress Neck: supple, no adenopathy, thyroid normal, no JVD, trachea midline Respiratory/Chest: chest non-tender, lungs clear, normal breath sounds, no respiratory distress, no accessory muscle use Cardiovascular: regular rate, rhythm, no edema, no murmur Abdomen/GI: normal bowel sounds, non tender, soft Back: normal inspection Extremities/Musculoskelatal: no calf tenderness, no pedal edema (only left foot examined as right leg was wrapped), + pertinent finding (right foot with wound vac) Lab data as noted below. ASSESSMENT & PLAN: 66 year old male with history of CAD, DM, HTN who is presenting with elevated blood pressure after Right Foot Incision and Drainage this morning. RIGHT FOOT CELLULITIS S/P I & D post op day on S/P I / T / D with wound vac today 11/20/16 -Noted after bunion surgery, did not respond to Bactrim or Keflex -Wound cultures from 11/16: Group G beta strep, Coag neg staph -Continue with Zosyn IV while awaiting operative wound cxs from 11/20/16. From 11/18/16- cultures negative -PICC placed on 11/20/16 PLAN: Per ID, IV Rocephin 2 gram x 10 days (prescription given) . SS to make arrangements for it. HYPERTENSION- stable likely from post op stress, pain, better now -PRN Clonidine for systolic bp > 160 ordered -Continue usual Bisoprolol/HCTZ - IV fluid - okay to discontinue -monitor DM TYPE 2 usually on Linagliptin and Metformin -monitor BSGs AC and HS, ISS ordered HISTORY OF CAD -no cardiac symptoms -on Aspirin, Bisoprolol DVT PROPHYLAXIS SCDS DISPOSITION Per primary team Okay to discharge from medical point of view Vital Signs: Date Time Temp Pulse Resp B/P Pulse Ox O2 Delivery O2 Flow Rate FiO2 11/21/16 07:50 37.3 58 18 137/88 97 Room Air 11/21/16 07:45 Room Air 11/21/16 03:03 37.1 55 18 154/81 93 Room Air 11/20/16 23:29 37.1 55 18 159/82 93 Room Air 11/20/16 19:40 Room Air 11/20/16 15:30 94 Room Air 11/20/16 15:06 37.4 62 16 132/79 94 Room Air 11/20/16 13:48 37.2 64 18 137/87 95 Room Air 11/20/16 12:50 37.0 68 16 155/88 94 Room Air 11/20/16 12:25 36.4 64 16 152/82 95 Nasal Cannula 2.0 11/20/16 11:50 95 Nasal Cannula 2.0 11/20/16 11:50 95 Nasal Cannula 2.0 11/20/16 11:50 37.2 65 16 150/87 95 Nasal Cannula 2.0 11/20/16 11:44 63 154/90 98 Nasal Cannula 2 11/20/16 11:30 37.8 63 158/86 97 Nasal Cannula 2 11/20/16 11:20 64 158/90 98 Nasal Cannula 2 11/20/16 11:10 62 160/87 100 Mask 10 11/20/16 11:00 67 151/92 99 Mask 10 11/20/16 10:54 36.4 16 166/98 100 Mask 10 Lab Results: Results Past 24 Hours Test 11/20/16 11:05 11/20/16 16:39 11/20/16 20:30 11/21/16 05:23 Range/Units Bedside Glucose 96 137 154 70-99 mg/dl White Blood Count 5.75 4.8-10.8 K/uL Red Blood Count 4.35 4.7-6.1 M/uL Hemoglobin 13.8 14.0-18.0 g/dL Hematocrit 39.3 42-52 % Mean Corpuscular Volume 90.3 80-100 fL Mean Corpuscular Hemoglobin 31.7 25-34 pg Mean Corpuscular Hemoglobin Concent 35.1 32-36 g/dl RDW Standard Deviation 41.5 36.4-46.3 fL RDW Coefficient of Variation 12.5 11.5-14.5 % Platelet Count 168 130-400 K/uL Mean Platelet Volume 9.0 7.4-10.4 fL Sodium Level 137 136-145 mmol/L Potassium Level 4.1 3.5-5.1 mmol/L Chloride Level 100 98-107 mmol/L Carbon Dioxide Level 27 21-32 mmol/L Anion Gap 10.0 3-11 mmol/L Blood Urea Nitrogen 20 7-18 mg/dl Creatinine 1.20 0.60-1.40 mg/dl Est Creatinine Clear Calc Drug Dose 61.7 ml/min Estimated GFR () 72.1 Estimated GFR (Non- 62.2 BUN/Creatinine Ratio 16.3 10-20 Random Glucose 120 70-99 mg/dl Calcium Level 9.0 8.5-10.1 mg/dl Test 11/21/16 08:00 Range/Units Bedside Glucose 102 70-99 mg/dl Microbiology Results 11/20/16 Gram Stain - Final, Resulted 11/20/16 Bacterial Culture, Resulted Pending 11/20/16 Gram Stain - Final, Resulted 11/20/16 Bacterial Culture, Resulted Pending
[2016-11-21 11:46] VITALS: BP 135/79; PULSE 62; TEMP 36.3; O2SAT 94
[2016-11-21] MEDS: POTASSIUM CHLORIDE INJ 10 MEQ in SODIUM CHLORIDE 0.9% 1000ML 1,000 ML IV SCH (12:16)
[2016-11-21 15:45] VITALS: BP 113/74; PULSE 63; TEMP 36.6; O2SAT 96
[2016-11-21] MEDS ORDERED: NURSING VERBAL MED ORDER ONE (16:15)
[2016-11-21] MEDS: METFORMIN HCL 500 MG TABCR PO SCH (17:28)
[2016-11-21] MEDS: SENNA 8.6 MG TAB PO SCH (20:49)
[2016-11-21 22:55] VITALS: BP 126/74; PULSE 63; TEMP 37.3; O2SAT 94
[2016-11-21] MEDS: OXYCODONE/ACETAMINOPHEN 5-325 TAB PO PRN (23:21)
[2016-11-22] MEDS: PIPERACILL/TAZOBAC IV 3.375 GM in DEXTROSE 5% 100ML IV SCH ×2 (04:14→12:19)
[2016-11-22 05:56] LABS: HEMATOCRIT 40.5 % (42-52); MEAN CELL VOLUME 90.2 fL (80-100); MEAN CORPUSCULAR HEMOGLOBIN 31.8 pg (25-34); MEAN CORPUSCULAR HGB CONC 35.3 g/dl (32-36); MEAN PLATELET VOLUME 9.2 fL (7.4-10.4); PLATELET COUNT 233 K/uL (130-400); RED BLOOD COUNT 4.49 M/uL (4.7-6.1); WHITE BLOOD COUNT 6.18 K/uL (4.8-10.8)
[2016-11-22 06:22] LABS: BUN/CREATININE RATIO 15.5 (10-20); CALCIUM 9.1 mg/dl (8.5-10.1); CREATININE 1.3 mg/dl (0.60-1.40); POTASSIUM 3.9 mmol/L (3.5-5.1)
[2016-11-22 07:28] VITALS: BP 145/83; PULSE 58; TEMP 36.7; O2SAT 96
[2016-11-22] MEDS: RANITIDINE HCL 150 MG TAB PO SCH ×2 (08:05→21:20)
[2016-11-22] MEDS: FERROUS GLUCONATE 324 MG TAB PO SCH ×3 (08:05→17:37)
[2016-11-22] MEDS: PANTOprazole SOD 40 MG TAB PO SCH (08:06)
[2016-11-22] MEDS: MULTIVITAMIN TAB PO SCH (08:06)
[2016-11-22] MEDS: HYDROCHLOROTHIAZIDE 25 MG TAB PO SCH (08:06)
[2016-11-22] MEDS: CALCIUM 600MG + VIT D 400 IU TAB PO SCH (08:07)
[2016-11-22] MEDS: BISOPROLOL FUMARATE 5 MG TAB PO SCH (08:07)
[2016-11-22] MEDS: DOCUSATE SODIUM 100 MG CAP PO SCH ×2 (08:07→21:20)
[2016-11-22] MEDS: ASPIRIN 81 MG ECTAB PO SCH (08:08)
[2016-11-22] MEDS: INSULIN ASPART 100 UNITS/ML 3 ML PEN SC SCH ×4 (09:00→21:00)
--- NOTE | 2016-11-22 11:37 | Progress Note ---
Internal Med Progress Note Date of Service: Nov 22, 2016. Provider Documentation: SUBJECTIVE: Patient c/o pain in RLE. No fever, chills, chest pain, SOB, nausea, vomiting S/P RLE foot I and D and wound vac placement OBJECTIVE: Vital Signs-as noted below Exam: General Appearance: WD/WN, no apparent distress Neck: supple, no adenopathy, thyroid normal, no JVD, trachea midline Respiratory/Chest: chest non-tender, lungs clear, normal breath sounds, no respiratory distress, no accessory muscle use Cardiovascular: regular rate, rhythm, no edema, no murmur Abdomen/GI: normal bowel sounds, non tender, soft Back: normal inspection Extremities/Musculoskelatal: no calf tenderness, no pedal edema (only left foot examined as right leg was wrapped), + pertinent finding (right foot with wound vac) Lab data as noted below. ASSESSMENT & PLAN: 66 year old male with history of CAD, DM, HTN who is presenting with elevated blood pressure after Right Foot Incision and Drainage this morning. RIGHT FOOT CELLULITIS S/P I & D post op day on S/P I / T / D with wound vac 11/20/16 -Noted after bunion surgery, did not respond to Bactrim or Keflex -Wound cultures from 11/16: Group G beta strep, Coag neg staph -Continue with Zosyn IV while awaiting operative wound cxs from 11/20/16. From 11/18/16- cultures negative -PICC placed on 11/20/16 PLAN: Per ID, IV Rocephin 2 gram x 10 days (prescription given) . SS to make arrangements for it. HYPERTENSION- stable likely from post op stress, pain, better now -PRN Clonidine for systolic bp > 160 ordered -Continue usual Bisoprolol/HCTZ -S/P IV fluids -monitor DM TYPE 2 usually on Linagliptin and Metformin -monitor BSGs AC and HS, ISS ordered HISTORY OF CAD -no cardiac symptoms -on Aspirin, Bisoprolol DVT PROPHYLAXIS SCDS DISPOSITION Per primary team Okay to discharge from medical point of view Vital Signs: Date Time Temp Pulse Resp B/P Pulse Ox O2 Delivery O2 Flow Rate FiO2 11/22/16 10:33 Room Air 11/22/16 07:28 36.7 58 16 145/83 96 Room Air 11/21/16 23:10 Room Air 12/24/16 22:55 37.3 63 16 126/74 94 Room Air 11/21/16 15:45 36.6 63 18 113/74 96 Room Air 11/21/16 15:45 Room Air 11/21/16 11:46 36.3 62 18 135/79 94 Room Air Lab Results: Results Past 24 Hours Test 11/21/16 12:11 11/21/16 16:44 11/21/16 20:57 11/22/16 05:15 Range/Units Bedside Glucose 133 122 141 70-99 mg/dl White Blood Count 6.18 4.8-10.8 K/uL Red Blood Count 4.49 4.7-6.1 M/uL Hemoglobin 14.3 14.0-18.0 g/dL Hematocrit 40.5 42-52 % Mean Corpuscular Volume 90.2 80-100 fL Mean Corpuscular Hemoglobin 31.8 25-34 pg Mean Corpuscular Hemoglobin Concent 35.3 32-36 g/dl RDW Standard Deviation 41.0 36.4-46.3 fL RDW Coefficient of Variation 12.5 11.5-14.5 % Platelet Count 233 130-400 K/uL Mean Platelet Volume 9.2 7.4-10.4 fL Sodium Level 135 136-145 mmol/L Potassium Level 3.9 3.5-5.1 mmol/L Chloride Level 98 98-107 mmol/L Carbon Dioxide Level 26 21-32 mmol/L Anion Gap 11.0 3-11 mmol/L Blood Urea Nitrogen 20 7-18 mg/dl Creatinine 1.30 0.60-1.40 mg/dl Est Creatinine Clear Calc Drug Dose 56.9 ml/min Estimated GFR () 65.4 Estimated GFR (Non- 56.5 BUN/Creatinine Ratio 15.5 10-20 Random Glucose 124 70-99 mg/dl Calcium Level 9.1 8.5-10.1 mg/dl Test 11/22/16 08:02 Range/Units Bedside Glucose 120 70-99 mg/dl
--- NOTE | 2016-11-22 11:54 | Orthopedic Progress Note ---
Orthopedic Progress Note Date of Service Nov 22, 2016. Subjective Post OP Day: 2 Reports: feeling well, Denies: SOB, calf pain, chest pain, light headedness, nausea / vomiting Additional Notes: LESS PAINFUL TODAY. STILL WITH SOME PURULENT DRAINAGE ALONG THE BIG TOE. WOUND NURSE SAW YESTERDAY AND REAPPLIED WOUND VAC. WOUND IMAGES IN CHART.-- LOOKS CLEAN Objective calves soft nontender, N/V intact, dressing C/D/I, A&O x3, toes mobile MILD PURULENT DRAINAGE FROM DISTAL END. SKIN IS MACERATED AROUND THE BIG TOE. WOUND VAC SUCTION SEEMS INTACT, BUT SUCTION MAY BE TOO FAR FROM WOUND? SWELLING AND FLUCTUANCE NOTED AROUND 1ST MTP. Date Time Temp Pulse Resp B/P Pulse Ox O2 Delivery O2 Flow Rate FiO2 11/22/16 10:33 Room Air 11/22/16 07:28 36.7 58 16 145/83 96 Room Air 11/21/16 23:10 Room Air 11/21/16 22:55 37.3 63 16 126/74 94 Room Air 11/21/16 15:45 36.6 63 18 113/74 96 Room Air 11/21/16 15:45 Room Air Laboratory Results 24 Hours: Test 11/22/16 05:15 Hematocrit 40.5 % Hemoglobin 14.3 g/dL Assessment & Plan Assessment: POD #2 s/p repeat I and d WOUND RIGHT FOOT Plan: WOUND CARE CONSULTED- DUE FOR WOUND VAC CHANGE TOMORROW. WILL TRY TO EXAMINE WHILE THEY HAVE IT OFF. MAY NEED ANOTHER REPEAT I&D CONT IV ABX INFECTIOUS DISEASE ON BOARD ALREADY HAS PICC LINE PAIN MANAGEMENT.
[2016-11-22 14:52] VITALS: BP 157/97; PULSE 65; TEMP 36.6; O2SAT 97
[2016-11-22] MEDS: METFORMIN HCL 500 MG TABCR PO SCH (17:37)
[2016-11-22] MEDS: CEFTRIAXONE SOD INJ 2,000 MG in DEXTROSE 5% 50ML 50 ML IV SCH (19:14)
[2016-11-22] MEDS: SENNA 8.6 MG TAB PO SCH (21:21)
[2016-11-22 23:12] VITALS: BP 131/83; PULSE 71; TEMP 36.9; O2SAT 95
[2016-11-23 07:35] VITALS: BP 144/85; PULSE 62; TEMP 37.1; O2SAT 97
--- NOTE | 2016-11-23 07:54 | Anesthesiology Progress Note ---
Anesthesia Post Op Note Date & Time Nov 23, 2016 at 07:54 Vital Signs Pain Intensity: 0.0 Vital Signs Past 12 Hours Date Time Temp Pulse Resp B/P Pulse Ox O2 Delivery O2 Flow Rate FiO2 11/22/16 23:40 Room Air 11/22/16 23:12 36.9 71 18 131/83 95 Room Air Notes Mental Status: alert / awake / arousable, participated in evaluation Pt Amnestic to Procedure: Yes Nausea / Vomiting: adequately controlled Pain: adequately controlled Airway Patency, RR, SpO2: stable & adequate BP & HR: stable & adequate Hydration State: stable & adequate Anesthetic Complications: no major complications apparent
[2016-11-23] MEDS: METOPROLOL TARTRATE 50 MG TAB PO SCH ×2 (08:37→20:20)
[2016-11-23] MEDS: FERROUS GLUCONATE 324 MG TAB PO SCH ×3 (08:38→17:48)
[2016-11-23] MEDS: MULTIVITAMIN TAB PO SCH (08:38)
[2016-11-23] MEDS: HYDROCHLOROTHIAZIDE 25 MG TAB PO SCH (08:38)
[2016-11-23] MEDS: CALCIUM 600MG + VIT D 400 IU TAB PO SCH (08:38)
[2016-11-23] MEDS: PANTOprazole SOD 40 MG TAB PO SCH (08:39)
[2016-11-23] MEDS: ASPIRIN 81 MG ECTAB PO SCH (08:39)
[2016-11-23] MEDS: DOCUSATE SODIUM 100 MG CAP PO SCH ×2 (08:39→20:20)
[2016-11-23] MEDS: RANITIDINE HCL 150 MG TAB PO SCH ×2 (08:39→20:20)
[2016-11-23] MEDS: INSULIN ASPART 100 UNITS/ML 3 ML PEN SC SCH ×4 (08:43→22:03)
--- NOTE | 2016-11-23 12:57 | Progress Note ---
Internal Med Progress Note Date of Service: Nov 23, 2016. Provider Documentation: SUBJECTIVE: Patient denies any complaints. Pain is RLE is well controlled No fever, chills, chest pain, SOB, nausea, vomiting S/P RLE foot I and D and wound vac placement- removed OBJECTIVE: Vital Signs-as noted below Exam: General Appearance: WD/WN, no apparent distress Neck: supple, no adenopathy, thyroid normal, no JVD, trachea midline Respiratory/Chest: chest non-tender, lungs clear, normal breath sounds, no respiratory distress, no accessory muscle use Cardiovascular: regular rate, rhythm, no edema, no murmur Abdomen/GI: normal bowel sounds, non tender, soft Back: normal inspection Extremities/Musculoskelatal: no calf tenderness, no pedal edema (only left foot examined as right leg was wrapped), + pertinent finding (right foot with wound vac). Wound vac removed on 11/23/16 Lab data as noted below. ASSESSMENT & PLAN: 66 year old male with history of CAD, DM, HTN who is presenting with elevated blood pressure after Right Foot Incision and Drainage this morning. RIGHT FOOT CELLULITIS May require another I & D S/P I & D post op day on 11/18/16 S/P I / T / D with wound vac 11/20/16 -Noted after bunion surgery, did not respond to Bactrim or Keflex -Wound cultures from 11/18 & 11/20- Negative for growth. -S/P IV Zosyn. IV Rocephin 2 gram started on 11/22/16 (Day 2/10). PICC line placed. Per ID will need Rocephin x 10 days -PICC placed on 11/20/16 HYPERTENSION- stable likely from post op stress, pain, better now -PRN Clonidine for systolic bp > 160 ordered -Continue usual Bisoprolol/HCTZ -S/P IV fluids -monitor DM TYPE 2 usually on Linagliptin and Metformin -monitor BSGs AC and HS, ISS ordered HISTORY OF CAD -No cardiac symptoms -On Aspirin, Bisoprolol DVT PROPHYLAXIS SCDS DISPOSITION Per primary team Okay to discharge from medical point of view Vital Signs: Date Time Temp Pulse Resp B/P Pulse Ox O2 Delivery O2 Flow Rate FiO2 11/23/16 08:00 Room Air 11/23/16 07:35 37.1 62 16 144/85 97 Room Air 11/22/16 23:40 Room Air 11/22/16 23:12 36.9 71 18 131/83 95 Room Air 11/22/16 15:15 Room Air 11/22/16 14:52 36.6 65 18 157/97 97 Room Air Lab Results: Results Past 24 Hours Test 11/22/16 16:54 11/22/16 20:59 11/23/16 07:42 11/23/16 11:53 Range/Units Bedside Glucose 163 129 125 148 70-99 mg/dl
[2016-11-23 15:03] VITALS: BP 127/76; PULSE 77; TEMP 37.1; O2SAT 97
[2016-11-23 16:00] VITALS: O2SAT 97
--- NOTE | 2016-11-23 16:39 | Orthopedic Progress Note ---
Orthopedic Progress Note Date of Service Nov 23, 2016. Subjective Post OP Day: 3 Reports: feeling well, Denies: SOB, calf pain, chest pain, light headedness, nausea / vomiting Objective calves soft nontender, N/V intact, A&O x3 WOUND VAC REMOVED. MODERATE AMOUNTS OF PURULENT DRAINAGE CAN BE EXPELLED FROM THE 1ST IP JOINT FLUID COLLECTION INTO THE EXISTING WOUND. Date Time Temp Pulse Resp B/P Pulse Ox O2 Delivery O2 Flow Rate FiO2 11/23/16 15:03 37.1 77 18 127/76 97 Room Air 11/23/16 08:00 Room Air 11/23/16 07:35 37.1 62 16 144/85 97 Room Air 11/22/16 23:40 Room Air 11/22/16 23:12 36.9 71 18 131/83 95 Room Air Assessment & Plan Assessment: POD #3 s/p repeat I and d WOUND RIGHT FOOT Plan: WILL REQUIRE ANOTHER I&D. DISCUSSED WITH DR. MARTINEZ, HE RECOMMENDS MRI OF THE FOOT WITH CONTRAST TO R/O OSTEOMYELITIS. NPO FOR TOMORROW CONT IV ABX INFECTIOUS DISEASE ON BOARD ALREADY HAS PICC LINE PAIN MANAGEMENT.
[2016-11-23] MEDS: METFORMIN HCL 500 MG TABCR PO SCH (17:48)
[2016-11-23] MEDS: CEFTRIAXONE SOD INJ 2,000 MG in DEXTROSE 5% 50ML 50 ML IV SCH (18:27)
--- NOTE | 2016-11-23 18:43 | Anesthesiology Progress Note ---
Anesthesia Progress Note Date of Service Nov 23, 2016. Progress Notes Patient is slated for I and D right foot. He has undergone this procedure on and 11/20 without incident. PMH significant for CAD, OH, HTN, HLD, asthma, RA , DM (SSI). He has had a CABG in past along with tonsillectomy. No tobacco or EtoH. Labs WNL. PICC line in place. EKG HR 56, sinus michelle with RBBB. Airway exam favorable (MP 2 with FROM of TMJ and neck). Consented for GA (ETT vs LMA). Questions answered. Hector Rosenberg MD Staff Anesthesiologist
[2016-11-23] MEDS ORDERED: GADAVIST IV PRN (20:00)
[2016-11-23] MEDS: SENNA 8.6 MG TAB PO SCH (20:20)
--- NOTE | 2016-11-23 23:07 | DIAGNOSTIC IMAGING REPORT ---
MRI OF THE RIGHT FOOT WITH AND WITHOUT CONTRAST CLINICAL HISTORY: Right foot wound infection. Status post bunion surgery on October 29, 2016 and subsequent incision and drainage. COMPARISON STUDY: No previous studies for comparison. TECHNIQUE: Utilizing a 1.5 Annelise magnet and dedicated coil, multiplanar, multi echo imaging of the right foot was performed pre and postcontrast administration. Injection of 7 cc of Gadavist IV was uneventful. FINDINGS: Alignment of the right foot is anatomic. The tarsometatarsal joints are intact. Foci of susceptibility artifact along the medial aspect of the right first metatarsophalangeal joint likely reflect surgical material although gas bubbles could appear similar. There is edema within the mid to distal shaft and head of the first metatarsal as well as edema within the proximal to mid aspect of the proximal phalanx of the right first toe. Marrow signal on the T1-weighted sequence is mildly diminished. There are erosions of the right first metatarsal head and base of the proximal phalanx of the right first toe. There is extensive edema and complex rim-enhancing multiloculated fluid collections centered on the right first metatarsophalangeal joint. Edema and enhancement extends along the extensor tendons of the first digit as well as the flexor tendons. No additional sites of marrow edema are present within the right foot. There is a small tibiotalar joint effusion. An apparent erosion within the lateral proximal shaft of the second metatarsal is likely chronic. IMPRESSION: 1. Extensive edema and enhancement with associated complex multiloculated rim-enhancing fluid collections centered on the right first metatarsophalangeal joint. In addition, there are erosions of the right first metatarsal head and base of the proximal phalanx of the right first toe. The edema, enhancement and associated fluid collections are nonspecific in the postoperative setting although an extensive infectious process with involvement of the adjacent tendon sheaths, particularly the extensor tendons, is favored. 2. Multifocal erosions with marrow edema and enhancement centered on the right first metatarsophalangeal joint involving the right first metatarsal head and base of the proximal phalanx of the right first toe. These findings are suggestive of osteomyelitis. Electronically signed by: Trevon Coleman M.D. 11/23/2016 11:05 PM
[2016-11-23] MEDS ORDERED: NURSING VERBAL MED ORDER ONE (23:15)
[2016-11-23 23:37] VITALS: BP 135/83; PULSE 61; TEMP 36.7; O2SAT 96
[2016-11-24] VITALS (8 sets, daily range): BP systolic 117–151; BP diastolic 76–94; PULSE 55–81; TEMP 36.4–37; O2SAT 94–97
[2016-11-24] MEDS: INSULIN ASPART 100 UNITS/ML 3 ML PEN SC SCH ×5 (06:00→21:10)
[2016-11-24] MEDS: FERROUS GLUCONATE 324 MG TAB PO SCH ×3 (08:30→18:54)
[2016-11-24] MEDS: MULTIVITAMIN TAB PO SCH (09:00)
[2016-11-24] MEDS: DOCUSATE SODIUM 100 MG CAP PO SCH ×2 (09:00→20:04)
[2016-11-24] MEDS: RANITIDINE HCL 150 MG TAB PO SCH ×2 (09:00→20:05)
[2016-11-24] MEDS: CALCIUM 600MG + VIT D 400 IU TAB PO SCH (09:00)
--- NOTE | 2016-11-24 12:29 | Orthopedic Progress Note ---
Orthopedic Progress Note Date of Service Nov 24, 2016. Subjective Post OP Day: 4 Reports: feeling well, Denies: SOB, calf pain, chest pain, light headedness, nausea / vomiting Additional Notes: MRI POSITIVE FOR OSTEOMYELITIS Objective calves soft nontender, N/V intact, dressing C/D/I, A&O x3, toes mobile Date Time Temp Pulse Resp B/P Pulse Ox O2 Delivery O2 Flow Rate FiO2 11/24/16 08:13 55 143/83 11/24/16 07:50 Room Air 11/24/16 07:35 37.0 58 17 124/77 94 Room Air 11/23/16 23:37 36.7 61 16 135/83 96 Room Air 11/23/16 23:10 Room Air 11/23/16 16:00 97 Room Air 11/23/16 15:03 37.1 77 18 127/76 97 Room Air Assessment & Plan Assessment: POD #4 s/p repeat I and d WOUND RIGHT FOOT Plan: WILL REQUIRE ANOTHER I&D. DISCUSSED WITH DR. MARTINEZ. PATIENT ON OR SCHEDULE FOR THIS AFTERNOON. CONT IV ABX- CURRENTLY ON ANCEF PER ID RECOMMENDATIONS. CULTURES NEGATIVE. INFECTIOUS DISEASE ON BOARD ALREADY HAS PICC LINE PAIN MANAGEMENT.
--- NOTE | 2016-11-24 15:23 | Progress Note ---
Internal Med Progress Note Date of Service: Nov 24, 2016. Provider Documentation: SUBJECTIVE: Patient denies any complaints. Pain is RLE is well controlled. No fever, chills, chest pain, SOB, nausea, vomiting S/P RLE foot I and D and wound vac placement- removed For repeat I & D today OBJECTIVE: Vital Signs-as noted below Exam: General Appearance: WD/WN, no apparent distress Neck: supple, no adenopathy, thyroid normal, no JVD, trachea midline Respiratory/Chest: chest non-tender, lungs clear, normal breath sounds, no respiratory distress, no accessory muscle use Cardiovascular: regular rate, rhythm, no edema, no murmur Abdomen/GI: normal bowel sounds, non tender, soft Back: normal inspection Extremities/Musculoskelatal: no calf tenderness, no pedal edema (only left foot examined as right leg was wrapped), + pertinent finding (right foot with wound vac). Wound vac removed on 11/23/16 Lab data as noted below. ASSESSMENT & PLAN: 66 year old male with history of CAD, DM, HTN who is presenting with elevated blood pressure after Right Foot Incision and Drainage this morning. RIGHT FOOT CELLULITIS For repeat I & D today S/P I & D post op day on 11/18/16 S/P I / T / D with wound vac 11/20/16 -Noted after bunion surgery, did not respond to Bactrim or Keflex -Wound cultures from 11/18 & 11/20- Negative for growth. -S/P IV Zosyn. IV Rocephin 2 gram started on 11/22/16 (Day 2/10). PICC line placed. Per ID will need Rocephin x 10 days -PICC placed on 11/20/16 HYPERTENSION- stable likely from post op stress, pain, better now -PRN Clonidine for systolic bp > 160 ordered -Continue usual Bisoprolol/HCTZ -S/P IV fluids -monitor DM TYPE 2 usually on Linagliptin and Metformin -monitor BSGs AC and HS, ISS ordered HISTORY OF CAD -No cardiac symptoms -On Aspirin, Bisoprolol DVT PROPHYLAXIS SCDS DISPOSITION Per primary team Vital Signs: Date Time Temp Pulse Resp B/P Pulse Ox O2 Delivery O2 Flow Rate FiO2 11/24/16 08:13 55 143/83 11/24/16 07:50 Room Air 11/24/16 07:35 37.0 58 17 124/77 94 Room Air 11/23/16 23:37 36.7 61 16 135/83 96 Room Air 11/23/16 23:10 Room Air 11/23/16 16:00 97 Room Air Lab Results: Results Past 24 Hours Test 11/23/16 16:38 11/23/16 20:41 11/23/16 23:54 11/24/16 06:08 Range/Units Bedside Glucose 159 213 133 139 70-99 mg/dl Test 11/24/16 12:34 Range/Units Bedside Glucose 117 70-99 mg/dl
[2016-11-24] MEDS ORDERED: MIDAZOLAM HCL 1 MG/ML 2ML VIAL ONE (15:27)
[2016-11-24] MEDS ORDERED: FENTANYL CITRATE INJ 50 MCG/1 ML 2 ML VIAL ONE (15:28)
[2016-11-24] MEDS ORDERED: CEFAZOLIN IV 2,000 MG/60 ML D5W IV ONE (16:17)
[2016-11-24] MEDS ORDERED: NURSING VERBAL MED ORDER ONE ×2 (16:30→19:30)
[2016-11-24] MEDS ORDERED: LIDOCAINE HCL 2% 2 ML VIAL (20MG/ML) ONE (16:46)
[2016-11-24] MEDS ORDERED: EpHEDrine SULFATE 50MG/5ML SYR ONE (16:46)
[2016-11-24] MEDS ORDERED: PROPOFOL IV EMULSION 10 MG/ML 20 ML VIAL IV ONE (16:46)
[2016-11-24] MEDS ORDERED: ONDANSETRON INJ 2 MG/ML 2 ML VIAL ONE (16:46)
[2016-11-24] MEDS ORDERED: BUPIVACAINE 0.5 % 5 MG/1 ML MPF 30ML VIAL INJ ONE (17:29)
[2016-11-24] MEDS ORDERED: BACITRACIN 50000 UNIT VIAL IR ONE (17:29)
[2016-11-24] MEDS ORDERED: EpHEDrine SULFATE INJ 50 MG/ML AMP IV PRN (18:00)
[2016-11-24] MEDS ORDERED: NALOXONE HCL 0.4 MG/1 ML VIAL/CARP IV PRN (18:00)
[2016-11-24] MEDS ORDERED: ATROPINE SULFATE 0.1 MG/ML 5ML SYR IV PRN (18:00)
[2016-11-24] MEDS ORDERED: ONDANSETRON INJ 2 MG/ML 2 ML VIAL IV PRN (18:00)
[2016-11-24] MEDS ORDERED: FLUMAZENIL 0.1 MG/1 ML 10 ML VIAL IV PRN (18:00)
[2016-11-24] MEDS ORDERED: PROMETHAZINE HCL INJ 12.5 MG in SODIUM CHLORIDE 0.9% 50ML 50 ML IV PRN (18:00)
[2016-11-24] MEDS ORDERED: HYDROmorphone INJ 1 MG/ML SYR IV PRN (18:00)
--- NOTE | 2016-11-24 18:13 | [facility] Post Operative Brief Note ---
Immediate Operative Summary Operative Date Nov 24, 2016. Pre-Operative Diagnosis Osteomyelitis Right First Metatarsal and Proximal Phalanx Great toe, Abscess right Foot Post-Operative Diagnosis Osteomyelitis Right First Metatarsal and Proximal Phalanx Great toe, Abscess right Foot x 3 locations, Tenosynovitis EHL Tendon, Infected joint capsule, Gouty Tophus Procedure(s) Performed Right Foot Incision and Drainage Right Foot Abscesses x 3, Debridement of Skin,Debridement First Metatarsal Bone and Proximal Phalanx Great Toe Right Foot, Tenosynovectomy Extensor Hallucis Longus, Debridement 1st Netatarsophalangeal Joint Capsule, Removal Gouty Tophus 1st MTP Surgeon Dr. Quinn Block Captain Surgeon(s) None Estimated Blood Loss 5ml Findings See Dict Specimens a. bone/ tophus right foot Drains Iodoform gauze x 3 Anesthesia GLMA w/ ankle block Complication(s) None Disposition Recovery Room / PACU
--- NOTE | 2016-11-24 18:25 | Anesthesiology Progress Note ---
Anesthesia Post Op Note Date & Time Nov 24, 2016 at 18:25 Vital Signs Pain Intensity: 3 Vital Signs Past 12 Hours Date Time Temp Pulse Resp B/P Pulse Ox O2 Delivery O2 Flow Rate FiO2 11/24/16 18:15 76 14 152/92 95 Nasal Cannula 2 11/24/16 18:05 70 17 158/98 97 Mask 10 11/24/16 17:55 68 21 151/90 97 Mask 10 11/24/16 17:46 36.7 68 14 134/87 96 Mask 10 11/24/16 15:45 Room Air 11/24/16 15:40 36.7 56 16 132/82 95 Room Air 11/24/16 08:13 55 143/83 11/24/16 07:50 Room Air 11/24/16 07:35 37.0 58 17 124/77 94 Room Air Notes Mental Status: alert / awake / arousable, participated in evaluation Pt Amnestic to Procedure: Yes Nausea / Vomiting: adequately controlled Pain: adequately controlled Airway Patency, RR, SpO2: stable & adequate BP & HR: stable & adequate Hydration State: stable & adequate Anesthetic Complications: no major complications apparent
--- NOTE | 2016-11-24 18:29 | DIAGNOSTIC IMAGING REPORT ---
RIGHT FOOT 3 VIEWS HISTORY: post-op Right COMPARISON: Right foot MRI 11/17/1616. FINDINGS: Overlying bandage obscures fine bony detail at the first MTP joint. There are are multifocal erosions at the first MTP joint with associated soft tissue swelling. There is a small amount of soft tissue gas. This remains unchanged on the prior MRI. No fracture or dislocation. Vascular calcifications are noted. Small plantar heel spur. No radiopaque foreign bodies. IMPRESSION: Multifocal erosions at the first MTP joint with associated soft tissue swelling. This is similar to the prior MRI and is consistent with osteomyelitis. There may be a small of soft tissue gas at the first MTP joint which could be postoperative.. Electronically signed by: Eze Fernando M.D. 11/24/2016 6:27 PM
[2016-11-24] MEDS: PANTOprazole SOD 40 MG TAB PO SCH (18:53)
[2016-11-24] MEDS: HYDROCHLOROTHIAZIDE 25 MG TAB PO SCH (18:54)
[2016-11-24] MEDS: METFORMIN HCL 500 MG TABCR PO SCH (18:55)
[2016-11-24] MEDS: ASPIRIN 81 MG ECTAB PO SCH (18:56)
[2016-11-24] MEDS: OXYCODONE/ACETAMINOPHEN 5-325 TAB PO PRN (19:29)
[2016-11-24] MEDS: CEFTRIAXONE SOD INJ 2,000 MG in DEXTROSE 5% 50ML 50 ML IV SCH (19:29)
[2016-11-24] MEDS: SENNA 8.6 MG TAB PO SCH (20:04)
[2016-11-24] MEDS: AZELASTINE HCL 30 ML INH SCH (20:06)
[2016-11-24] MEDS: BISOPROLOL FUMARATE 5 MG TAB PO SCH (20:06)
--- NOTE | 2016-11-24 23:10 | OPERATIVE REPORT ---
DATE OF OPERATION: 11/24/2016 PREOPERATIVE DIAGNOSES: 1. Right foot abscess x3 separate locations, one in the medial plantar foot, #2 dorsal foot adjacent to the extensor hallucis longus, #3 between the first and second metatarsal heads. 2. Osteomyelitis, first metatarsal head. 3. Osteomyelitis of proximal phalanx, great toe. 4. Gouty tophus. POSTOPERATIVE DIAGNOSES: 1. Right foot abscesses x3 locations as noted above. 2. Osteomyelitis, first metatarsal head. 3. Osteomyelitis, proximal phalanx of the great toe. 4. Tenosynovitis of the extensor hallucis longus. 5. Gouty tophus. 6. Infected first metatarsophalangeal joint capsule. PROCEDURES: 1. Right foot incision and drainage of abscesses, 3 separate sites via 3 separate incisions. 2. Debridement of bone, first metatarsal head. 3. Debridement of bone, proximal phalanx of the great toe. 4. Tenosynovectomy of the extensor hallucis longus tendon. 5. Debridement of the first metatarsophalangeal joint capsule. 6. Excision of gouty tophus, first metatarsophalangeal joint. SURGEON: Dr. Quinn. FIRE FIGHTERS DISPATCHER: None. ANESTHESIA: General LMA with ankle block. SPECIMENS: Aerobic, anaerobic Gram stain from the medial first MTP, bone and gouty tophus for specimen. DRAINS: Iodoform gauze half inch x3. COMPLICATIONS: None. BLOOD LOSS: 5 mL. PERTINENT HISTORY: This is a 66-year-old gentleman who had a prior bunion correction performed by Dr. Murray in October 2016. He had a history of gout and developed wound complications medial first MTP. Dr. Murray had performed irrigation and debridement on at least 2-[address] Murray' last surgery performed on 11/20/2016. The patient then developed continued redness, swelling and then purulent drainage, requiring further irrigation and debridement today. The patient was then scheduled for surgery as indicated and I was contacted to care for the patient as Dr. Murray was unavailable at this time. All potential risks, benefits, complications, alternatives, rehab, potential for incomplete relief of symptoms, need for further surgery, DVT, PE, , persistent pain, swelling, scarring, weakness, neurovascular injury, wound complications, need for further surgery, possible amputation, loss of function were discussed with the patient. The patient decided to proceed with the procedure as indicated. PROCEDURE IN DETAIL: The patient was taken to the operative suite, placed supine on the operating room table. After review of consent and identification of proper operative site, the patient was anesthetized, LMA was placed. Tourniquet was applied high on the right thigh over cast padding. Right lower extremity was then sterilely prepped and draped in usual fashion, elevated and tourniquet inflated to 350 mmHg. There was no exsanguination performed due to the nature of the patient's infection. Next, a 15 blade scalpel was used to expand the medial incision over the first metatarsal head proximally and distally with a 15 blade scalpel and noted to be significant purulent gouty drainage with precipitate evident. The medial capsule was also involved significantly with infiltrative tophus and obvious infection of the capsule. At this point, the capsule was carefully debrided with a rongeur, taking care to avoid disrupting its structural integrity. Next, the capsule was then incised and then elevated both superiorly and inferiorly to gain access to the first metatarsophalangeal joint. There was noted to be gouty plaques and deposits throughout the joint. Noted to be purulent drainage and discharge throughout the joint as well. Pulsatile lavage was used to cleanse this area with bacitracin additive, approximately 500 mL. Next, after the lavage had irrigated the joint until essentially clear with gouty plaques still evident, the first metatarsal head was then carefully debrided with a rongeur. Noted to be excessively soft in the medial bone and pits and erosions around the first metatarsal head. Area of gouty deposit was noted within the first metatarsal head, it was debrided with a curette with significant metatarsal head destruction noted as a result of the gouty precipitates. Next, attention then directed toward the proximal phalanx of the great toe. A similar appearance with gouty deposits and infiltrative precipitate. Rongeur was then used to debride the damaged and softened portion of the proximal phalanx back to more stable proximal phalanx. This bone was then sent for specimen including the gouty tophus. Aerobic, anaerobic Gram stain cultures have been taken upon incision of the first metatarsophalangeal joint. Next, the 15 blade scalpel was then used to make an incision on the dorsum of the foot, adjacent to the extensor hallucis longus. At this point, careful dissection was performed down to the tendon. There was noted to be a large abscess pocket with associated gouty precipitate. This was then resected with a rongeur. Next, there was noted to be reactive tenosynovitis from the extensor hallucis longus. Tenosynovectomy was performed with a rongeur of the extensor hallucis longus. Next, this wound was then evacuated of any purulent material and gouty tophus and the wound was copiously irrigated with pulsatile lavage, of approximately 1000 mL. Next, the third incision was made between the first and second metatarsal heads with a 15 blade scalpel. This incision was then deepened through the subcutaneous tissues. A combination of blunt and sharp dissection was performed down to the first interspace, noting large purulent fluid collection with gouty precipitate also present. This was evacuated and debrided with a rongeur and then pulsatile lavage of approximately 1 liter was then used to cleanse the region until clear and then further debridement was performed with a rongeur, 15 blade scalpel and forceps to remove the gouty deposits from the soft tissue surrounding the incision as well as adjacent and associated with the lateral joint capsule. Next, the pulsatile lavage was then used 6 liters in total with bacitracin to cleanse the 3 incisions. After this was completed, top gloves and top sheet were changed. The sites were separately packed with a 1/2 inch iodoform gauze, approximately 6-8 inches in length and then the incision was then partially closed with 4-0 nylon suture horizontal mattress stitches. Next, an ankle block was performed with 30 mL of 0.5% Marcaine plain, followed by application of a sterile compressive dressing overwrapped with Peter wrap. The tourniquet was released. The patient was awakened and taken to recovery in stable condition. I attest to the content of the Intraoperative Record and any orders documented therein. Any exceptio ns are noted below.
[2016-11-25 02:43] VITALS: BP 114/74; PULSE 64; TEMP 37.1; O2SAT 94
[2016-11-25] MEDS ORDERED: MoRPHine SULFATE 4 MG/ML 1 ML CARP\\VIAL IV STA (04:29)
[2016-11-25 06:22] LABS: HEMATOCRIT 40.8 % (42-52); MEAN CELL VOLUME 89.5 fL (80-100); MEAN CORPUSCULAR HGB CONC 35.8 g/dl (32-36); MEAN PLATELET VOLUME 8.8 fL (7.4-10.4); PLATELET COUNT 361 K/uL (130-400); RED BLOOD COUNT 4.56 M/uL (4.7-6.1); WHITE BLOOD COUNT 9.48 K/uL (4.8-10.8)
[2016-11-25 07:17] LABS: BUN/CREATININE RATIO 19.1 (10-20); CALCIUM 9.2 mg/dl (8.5-10.1); CREATININE 1.6 mg/dl (0.60-1.40); POTASSIUM 4.2 mmol/L (3.5-5.1)
[2016-11-25 07:51] VITALS: BP 135/84; PULSE 70; TEMP 37; O2SAT 95
[2016-11-25] MEDS: SODIUM CHLORIDE 0.9% 1000ML 1,000 ML IV SCH ×2 (08:00→20:38)
[2016-11-25] MEDS: FERROUS GLUCONATE 324 MG TAB PO SCH ×3 (08:30→18:21)
[2016-11-25] MEDS: DOCUSATE SODIUM 100 MG CAP PO SCH ×2 (09:00→20:38)
[2016-11-25] MEDS: HYDROCHLOROTHIAZIDE 25 MG TAB PO SCH (09:00)
[2016-11-25] MEDS: INSULIN ASPART 100 UNITS/ML 3 ML PEN SC SCH ×4 (09:00→20:51)
[2016-11-25] MEDS: BISOPROLOL FUMARATE 5 MG TAB PO SCH ×2 (09:00→20:37)
[2016-11-25] MEDS: MULTIVITAMIN TAB PO SCH (09:00)
[2016-11-25] MEDS: TRADJENTA 5 MG PO SCH (09:00)
[2016-11-25] MEDS: CALCIUM 600MG + VIT D 400 IU TAB PO SCH (09:00)
[2016-11-25] MEDS: ASPIRIN 81 MG ECTAB PO SCH (09:00)
[2016-11-25] MEDS: PANTOprazole SOD 40 MG TAB PO SCH (09:00)
[2016-11-25] MEDS: RANITIDINE HCL 150 MG TAB PO SCH ×2 (09:00→20:38)
[2016-11-25] MEDS: AZELASTINE HCL 30 ML INH SCH ×2 (09:00→20:36)
--- NOTE | 2016-11-25 09:10 | Anesthesiology Progress Note ---
Anesthesia Post Op Note Date & Time Nov 25, 2016 at 09:09 Vital Signs Pain Intensity: 0.0 Vital Signs Past 12 Hours Date Time Temp Pulse Resp B/P Pulse Ox O2 Delivery O2 Flow Rate FiO2 11/25/16 08:17 Room Air 11/25/16 07:51 37.0 70 16 135/84 95 Room Air 11/25/16 02:43 37.1 64 18 114/74 94 Room Air 11/24/16 22:17 36.6 75 16 117/76 94 Room Air Notes Mental Status: alert / awake / arousable, participated in evaluation Pt Amnestic to Procedure: Yes Nausea / Vomiting: adequately controlled Pain: adequately controlled Airway Patency, RR, SpO2: stable & adequate BP & HR: stable & adequate Hydration State: stable & adequate Anesthetic Complications: no major complications apparent
[2016-11-25] MEDS: OXYCODONE/ACETAMINOPHEN 5-325 TAB PO PRN (09:20)
--- NOTE | 2016-11-25 09:43 | Orthopedic Progress Note ---
Orthopedic Progress Note Date of Service Nov 25, 2016. Subjective Post OP Day: 1 Reports: complaints (Occasional mild to moderate foot pain.), feeling well, Denies: SOB, calf pain, chest pain, light headedness, nausea / vomiting Additional Notes: Nerve block effective until approx 2 am last night. Objective calves soft nontender, N/V intact, capillary refill less than 2 sec., dressing C /D/I, A&O x3, toes mobile Iodoform gauze drains intact with serosanguinous d/c. Partial packing pulled. Dressing changed. Diminished edema and erythema. No foul odor. DP/PT 2/4 R LE. Date Time Temp Pulse Resp B/P Pulse Ox O2 Delivery O2 Flow Rate FiO2 11/25/16 08:17 Room Air 11/25/16 07:51 37.0 70 16 135/84 95 Room Air 11/25/16 02:43 37.1 64 18 114/74 94 Room Air 11/24/16 22:17 36.6 75 16 117/76 94 Room Air 11/24/16 20:56 36.4 79 16 136/87 96 Nasal Cannula 2.0 11/24/16 19:49 36.4 81 16 148/92 95 Nasal Cannula 2.0 11/24/16 19:45 Room Air 11/24/16 19:17 36.7 80 16 143/89 97 Nasal Cannula 2.0 11/24/16 18:52 36.5 67 16 151/94 94 Nasal Cannula 2.0 11/24/16 18:44 Nasal Cannula 2.0 11/24/16 18:25 36.0 73 15 156/90 96 Nasal Cannula 2 11/24/16 18:15 76 14 152/92 95 Nasal Cannula 2 11/24/16 18:05 70 17 158/98 97 Mask 10 11/24/16 17:55 68 21 151/90 97 Mask 10 11/24/16 17:46 36.7 68 14 134/87 96 Mask 10 11/24/16 15:45 Room Air 11/24/16 15:40 36.7 56 16 132/82 95 Room Air Laboratory Results 24 Hours: Test 11/25/16 05:45 Hematocrit 40.8 % Hemoglobin 14.6 g/dL Assessment & Plan Assessment: POD #1 and #4 s/p repeat Irrigation and extensive debridement of bone, skin and tendon RIGHT FOOT Osteomyelitis first metatarsal and proximal phalanx s/p debridement Gout with Tophus deposition Plan: Dressing change and pull partial packing on , Reassess for possible repeat I and D Wednesday CONT IV ABX- CURRENTLY ON ANCEF PER ID RECOMMENDATIONS. CULTURES NEGATIVE. INFECTIOUS DISEASE ALREADY HAS PICC LINE PAIN MANAGEMENT.
--- NOTE | 2016-11-25 13:52 | Progress Note ---
Internal Med Progress Note Date of Service: Nov 25, 2016. Provider Documentation: SUBJECTIVE: Patient continues to have pain in right foot which is controlled with meds. No fever, chills, chest pain, SOB, nausea, vomiting OBJECTIVE: Vital Signs-as noted below Exam: General Appearance: WD/WN, no apparent distress Neck: supple, no adenopathy, thyroid normal, no JVD, trachea midline Respiratory/Chest: chest non-tender, lungs clear, normal breath sounds, no respiratory distress, no accessory muscle use Cardiovascular: regular rate, rhythm, no edema, no murmur Abdomen/GI: normal bowel sounds, non tender, soft Back: normal inspection Extremities/Musculoskelatal: Left leg= no edema, + pertinent finding (right foot -dressing + ). Wound vac removed on 11/23/16 Lab data as noted below. ASSESSMENT & PLAN: 66 year old male with history of CAD, DM, HTN who is presenting with elevated blood pressure after Right Foot Incision and Drainage this morning. OSTEOMYELITIS FIRST METATARSAL AND PROXIMAL PHALYNX /RIGHT FOOT CELLULITIS : Has required multiple I & D/Debridements throughout hospitalization. Contributing factors: Gout with tophus deposition per orthopedics note. S/P Repeat Irrigation, extensive debridement of skin, bone, tendon on 11/24/16 S/P I / T / D with wound vac 11/20/16 S/P I & D on 11/18/16 -Noted after bunion surgery, did not respond to Bactrim or Keflex outpatient -Wound cultures from 11/18 & 11/20- Negative for growth. -S/P IV Zosyn x 4 days. IV Rocephin 2 gram started on 11/22/16 (Day 4). Discussed with ID on 11/21/16 and recommended IV Rocephin x 10 days. However, had to undergo repeat I & D/debridement since than. Duration will need to be re evaluated at the time of discharge. -PICC placed on 11/20/16 ODESSA Creatinine bumped up to 1.60 today -Started IV NS at 75 cc/hour -Monitor HYPERTENSION- stable -PRN Clonidine for systolic bp > 160 ordered -Continue usual Bisoprolol/HCTZ -Monitor DM TYPE 2 Usually on Linagliptin and Metformin -Monitor BSGs - AC and HS, ISS ordered HISTORY OF CAD -No cardiac symptoms -On Aspirin, Bisoprolol DVT PROPHYLAXIS SCDS re: repeated procedures needed. DISPOSITION Per primary team Vital Signs: Date Time Temp Pulse Resp B/P Pulse Ox O2 Delivery O2 Flow Rate FiO2 11/25/16 08:17 Room Air 11/25/16 07:51 37.0 70 16 135/84 95 Room Air 11/25/16 02:43 37.1 64 18 114/74 94 Room Air 11/24/16 22:17 36.6 75 16 117/76 94 Room Air 11/24/16 20:56 36.4 79 16 136/87 96 Nasal Cannula 2.0 11/24/16 19:49 36.4 81 16 148/92 95 Nasal Cannula 2.0 11/24/16 19:45 Room Air 11/24/16 19:17 36.7 80 16 143/89 97 Nasal Cannula 2.0 11/24/16 18:52 36.5 67 16 151/94 94 Nasal Cannula 2.0 11/24/16 18:44 Nasal Cannula 2.0 11/24/16 18:25 36.0 73 15 156/90 96 Nasal Cannula 2 11/24/16 18:15 76 14 152/92 95 Nasal Cannula 2 11/24/16 18:05 70 17 158/98 97 Mask 10 11/24/16 17:55 68 21 151/90 97 Mask 10 11/24/16 17:46 36.7 68 14 134/87 96 Mask 10 11/24/16 15:45 Room Air 11/24/16 15:40 36.7 56 16 132/82 95 Room Air Lab Results: Results Past 24 Hours Test 11/24/16 17:49 11/24/16 21:02 11/25/16 05:45 11/25/16 08:16 Range/Units Bedside Glucose 103 183 141 70-99 mg/dl White Blood Count 9.48 4.8-10.8 K/uL Red Blood Count 4.56 4.7-6.1 M/uL Hemoglobin 14.6 14.0-18.0 g/dL Hematocrit 40.8 42-52 % Mean Corpuscular Volume 89.5 80-100 fL Mean Corpuscular Hemoglobin 32.0 25-34 pg Mean Corpuscular Hemoglobin Concent 35.8 32-36 g/dl RDW Standard Deviation 40.7 36.4-46.3 fL RDW Coefficient of Variation 12.5 11.5-14.5 % Platelet Count 361 130-400 K/uL Mean Platelet Volume 8.8 7.4-10.4 fL Sodium Level 136 136-145 mmol/L Potassium Level 4.2 3.5-5.1 mmol/L Chloride Level 99 98-107 mmol/L Carbon Dioxide Level 28 21-32 mmol/L Anion Gap 9.0 3-11 mmol/L Blood Urea Nitrogen 31 7-18 mg/dl Creatinine 1.60 0.60-1.40 mg/dl Est Creatinine Clear Calc Drug Dose 46.3 ml/min Estimated GFR () 50.9 Estimated GFR (Non- 43.9 BUN/Creatinine Ratio 19.1 10-20 Random Glucose 142 70-99 mg/dl Calcium Level 9.2 8.5-10.1 mg/dl Chemistry Specimen Hemolysis Test 11/25/16 12:11 Range/Units Bedside Glucose 188 70-99 mg/dl Microbiology Results 11/24/16 Gram Stain - Final, Resulted 11/24/16 Bacterial Culture - Preliminary, Resulted NO GROWTH TO DATE.
[2016-11-25 15:26] VITALS: BP 172/86; PULSE 72; TEMP 37; O2SAT 94
[2016-11-25 16:08] VITALS: BP 137/74
[2016-11-25] MEDS: METFORMIN HCL 500 MG TABCR PO SCH (18:23)
[2016-11-25] MEDS: CEFTRIAXONE SOD INJ 2,000 MG in DEXTROSE 5% 50ML 50 ML IV SCH (18:49)
[2016-11-25 19:30] VITALS: BP 131/72; PULSE 76; TEMP 36.6; O2SAT 93
[2016-11-25] MEDS: SENNA 8.6 MG TAB PO SCH (20:38)
[2016-11-25 23:14] VITALS: BP 143/77; PULSE 67; TEMP 37.1; O2SAT 94
[2016-11-26 05:51] LABS: HEMATOCRIT 38.5 % (42-52); MEAN CELL VOLUME 88.5 fL (80-100); MEAN CORPUSCULAR HGB CONC 35.1 g/dl (32-36); MEAN PLATELET VOLUME 8.5 fL (7.4-10.4); PLATELET COUNT 311 K/uL (130-400); RED BLOOD COUNT 4.35 M/uL (4.7-6.1); WHITE BLOOD COUNT 8.79 K/uL (4.8-10.8)
[2016-11-26 06:18] LABS: BUN/CREATININE RATIO 17.5 (10-20); CALCIUM 9.1 mg/dl (8.5-10.1); CREATININE 1.3 mg/dl (0.60-1.40); POTASSIUM 3.7 mmol/L (3.5-5.1)
[2016-11-26 07:55] VITALS: BP 141/75; PULSE 68; TEMP 36.8; O2SAT 94
[2016-11-26] MEDS: DOCUSATE SODIUM 100 MG CAP PO SCH ×2 (09:00→21:25)
[2016-11-26] MEDS: AZELASTINE HCL 30 ML INH SCH ×2 (09:23→21:26)
[2016-11-26] MEDS: FERROUS GLUCONATE 324 MG TAB PO SCH ×3 (09:23→17:18)
[2016-11-26] MEDS: CALCIUM 600MG + VIT D 400 IU TAB PO SCH (09:24)
[2016-11-26] MEDS: BISOPROLOL FUMARATE 5 MG TAB PO SCH ×2 (09:24→21:28)
[2016-11-26] MEDS: HYDROCHLOROTHIAZIDE 25 MG TAB PO SCH (09:25)
[2016-11-26] MEDS: ASPIRIN 81 MG ECTAB PO SCH (09:25)
[2016-11-26] MEDS: RANITIDINE HCL 150 MG TAB PO SCH ×2 (09:26→21:25)
[2016-11-26] MEDS: PANTOprazole SOD 40 MG TAB PO SCH (09:26)
[2016-11-26] MEDS: MULTIVITAMIN TAB PO SCH (09:26)
[2016-11-26] MEDS: TRADJENTA 5 MG PO SCH (09:26)
--- NOTE | 2016-11-26 09:28 | Orthopedic Progress Note ---
Orthopedic Progress Note Date of Service Nov 26, 2016. Subjective Post OP Day: 2 Reports: feeling well, pain controlled w PO medications, Denies: SOB, calf pain , chest pain, complaints, light headedness, nausea / vomiting Additional Notes: patient states foot pain has improved since yesterday Objective calves soft nontender, N/V intact, capillary refill less than 2 sec., A&O x3, toes mobile I removed 4 inches of packing from most medial incision, all of the packing from the middle incision and 4 inches from lateral incision. continues to have mild erythema surrounding wounds, however states it is less than yesterday. toes mobile, adequate ankle ROM. skin edges well approximated. Date Time Temp Pulse Resp B/P Pulse Ox O2 Delivery O2 Flow Rate FiO2 11/26/16 08:02 Room Air 11/26/16 07:55 36.8 68 16 141/75 94 Room Air 11/25/16 23:50 Room Air 11/25/16 23:14 37.1 67 18 143/77 94 Room Air 11/25/16 19:30 36.6 76 16 131/72 93 Room Air 11/25/16 16:08 137/74 11/25/16 16:00 Room Air 11/25/16 15:26 37.0 72 14 172/86 94 Room Air Laboratory Results 24 Hours: Test 11/26/16 05:36 Hematocrit 38.5 % Hemoglobin 13.5 g/dL Assessment & Plan Assessment: POD #2 and #5 s/p repeat Irrigation and extensive debridement of bone, skin and tendon RIGHT FOOT Osteomyelitis first metatarsal and proximal phalanx s/p debridement Gout with Tophus deposition -partial packing removed today, cont to ice/elevate, new dressing applied. will make NPO after MN tonight for poss repeat I&D tomorrow am by dr jackson, OR notified. however will reassess in am. if improving will cont with IV Abx. Plan: CONT IV ABX- CURRENTLY ON ANCEF PER ID RECOMMENDATIONS. -cultures negative to date. - INFECTIOUS DISEASE FOLLOWING - HAS PICC LINE - PAIN MANAGEMENT- currently adequately controlled.
[2016-11-26] MEDS: INSULIN ASPART 100 UNITS/ML 3 ML PEN SC SCH ×4 (09:30→21:00)
[2016-11-26] MEDS: SODIUM CHLORIDE 0.9% 1000ML 1,000 ML IV SCH (09:33)
--- NOTE | 2016-11-26 10:51 | Progress Note ---
Internal Med Progress Note Date of Service: Nov 26, 2016. Provider Documentation: SUBJECTIVE: Patient is feeling much better today. No pain in right foot. Did not require pain med since yesterday afternoon. No fever, chills, chest pain, SOB, nausea, vomiting. OBJECTIVE: Vital Signs-as noted below Exam: General Appearance: AAOX3, no apparent distress Neck: supple, No JVD Respiratory/Chest: chest non-tender, lungs clear, normal breath sounds, no respiratory distress, no accessory muscle use Cardiovascular: regular rate, rhythm, no edema, no murmur Abdomen/GI: normal bowel sounds, non tender, soft Back: normal inspection Extremities/Musculoskelatal: Left leg = no edema, + pertinent finding (right foot -dressing + ). Lab data as noted below. ASSESSMENT & PLAN: 66 year old male with history of CAD, DM, HTN who is presenting with elevated blood pressure after Right Foot Incision and Drainage this morning. OSTEOMYELITIS FIRST METATARSAL AND PROXIMAL PHALYNX /RIGHT FOOT CELLULITIS : Has required multiple I & D/Debridements throughout hospitalization. Contributing factors : Gout with tophus deposition per orthopedics note. S/P Repeat Irrigation, extensive debridement of skin, bone, tendon on 11/24/16 S/P I / T / D with wound vac 11/20/16 S/P I & D on 11/18/16 -Noted after bunion surgery, did not respond to Bactrim or Keflex outpatient -Wound cultures from 11/18 & 11/20- Negative for growth. -S/P IV Zosyn x 4 days. IV Rocephin 2 gram started on 11/22/16 (Day 5). Discussed with ID, Dr Blunt on 11/21/16 and recommended IV Rocephin x 10 days. However, had to undergo repeat I & D/debridement since than. Duration will need to be re evaluated at the time of discharge. -PICC placed on 11/20/16 PLAN: S/.P Partial packing removal today by ortho. NPO after MN tonight for poss repeat I&D tomorrow am by dr jackson after re assessment in AM. Continue with IV antibiotics ODESSA- Resolving Creatinine bumped up to 1.60 yesterday--> back to 1.30 today -Started IV NS at 75 cc/hour yesterday--> OK to discontinue. Encourage PO fluids -Monitor HYPERTENSION- stable -PRN Clonidine for systolic bp > 160 ordered -Continue usual Bisoprolol/HCTZ -Monitor DM TYPE 2 - Stable Usually on Linagliptin and Metformin-hold -Monitor BSGs - AC and HS, ISS HISTORY OF CAD -No cardiac symptoms -On Aspirin, Bisoprolol DVT PROPHYLAXIS SCDS re: repeated procedures needed. DISPOSITION Per primary team Vital Signs: Date Time Temp Pulse Resp B/P Pulse Ox O2 Delivery O2 Flow Rate FiO2 11/26/16 08:02 Room Air 11/26/16 07:55 36.8 68 16 141/75 94 Room Air 11/25/16 23:50 Room Air 11/25/16 23:14 37.1 67 18 143/77 94 Room Air 11/25/16 19:30 36.6 76 16 131/72 93 Room Air 11/25/16 16:08 137/74 11/25/16 16:00 Room Air 11/25/16 15:26 37.0 72 14 172/86 94 Room Air Lab Results: Results Past 24 Hours Test 11/25/16 12:11 11/25/16 17:00 11/25/16 20:49 11/26/16 05:36 Range/Units Bedside Glucose 188 148 142 70-99 mg/dl White Blood Count 8.79 4.8-10.8 K/uL Red Blood Count 4.35 4.7-6.1 M/uL Hemoglobin 13.5 14.0-18.0 g/dL Hematocrit 38.5 42-52 % Mean Corpuscular Volume 88.5 80-100 fL Mean Corpuscular Hemoglobin 31.0 25-34 pg Mean Corpuscular Hemoglobin Concent 35.1 32-36 g/dl RDW Standard Deviation 39.1 36.4-46.3 fL RDW Coefficient of Variation 12.2 11.5-14.5 % Platelet Count 311 130-400 K/uL Mean Platelet Volume 8.5 7.4-10.4 fL Sodium Level 134 136-145 mmol/L Potassium Level 3.7 3.5-5.1 mmol/L Chloride Level 99 98-107 mmol/L Carbon Dioxide Level 28 21-32 mmol/L Anion Gap 7.0 3-11 mmol/L Blood Urea Nitrogen 23 7-18 mg/dl Creatinine 1.30 0.60-1.40 mg/dl Est Creatinine Clear Calc Drug Dose 56.9 ml/min Estimated GFR () 65.4 Estimated GFR (Non- 56.5 BUN/Creatinine Ratio 17.5 10-20 Random Glucose 135 70-99 mg/dl Calcium Level 9.1 8.5-10.1 mg/dl Test 11/26/16 07:56 Range/Units Bedside Glucose 216 70-99 mg/dl
[2016-11-26 15:21] VITALS: BP 130/86; PULSE 67; TEMP 37; O2SAT 94
[2016-11-26] MEDS: METFORMIN HCL 500 MG TABCR PO SCH (17:18)
[2016-11-26] MEDS: CEFTRIAXONE SOD INJ 2,000 MG in DEXTROSE 5% 50ML 50 ML IV SCH (18:37)
[2016-11-26] MEDS: SENNA 8.6 MG TAB PO SCH (21:26)
[2016-11-26 23:23] VITALS: BP 145/81; PULSE 71; TEMP 37.1; O2SAT 94
[2016-11-27] VITALS (10 sets, daily range): BP systolic 125–145; BP diastolic 63–87; PULSE 58–64; TEMP 36.5–37.2; O2SAT 93–97
[2016-11-27] MEDS ORDERED: NURSING VERBAL MED ORDER ONE ×2 (00:45→13:30)
[2016-11-27] MEDS: INSULIN ASPART 100 UNITS/ML 3 ML PEN SC SCH ×4 (06:00→20:41)
[2016-11-27] MEDS: CALCIUM 600MG + VIT D 400 IU TAB PO SCH (08:24)
[2016-11-27] MEDS: AZELASTINE HCL 30 ML INH SCH ×2 (08:24→20:38)
[2016-11-27] MEDS: PANTOprazole SOD 40 MG TAB PO SCH (08:24)
[2016-11-27] MEDS: RANITIDINE HCL 150 MG TAB PO SCH ×2 (08:25→20:38)
[2016-11-27] MEDS: MULTIVITAMIN TAB PO SCH (08:25)
[2016-11-27] MEDS: FERROUS GLUCONATE 324 MG TAB PO SCH ×3 (08:25→17:56)
[2016-11-27] MEDS: ASPIRIN 81 MG ECTAB PO SCH (08:25)
[2016-11-27] MEDS: DOCUSATE SODIUM 100 MG CAP PO SCH ×2 (08:25→20:38)
[2016-11-27] MEDS: HYDROCHLOROTHIAZIDE 25 MG TAB PO SCH (08:25)
[2016-11-27] MEDS: BISOPROLOL FUMARATE 5 MG TAB PO SCH ×2 (08:26→20:39)
[2016-11-27] MEDS: TRADJENTA 5 MG PO SCH (08:27)
[2016-11-27] MEDS ORDERED: FENTANYL CITRATE INJ 50 MCG/1 ML 2 ML VIAL ONE ×2 (09:26→10:19)
[2016-11-27] MEDS ORDERED: MIDAZOLAM HCL 1 MG/ML 2ML VIAL ONE ×2 (09:26→10:19)
[2016-11-27] MEDS ORDERED: PROPOFOL IV EMULSION 10 MG/ML 20 ML VIAL IV ONE (10:19)
[2016-11-27] MEDS ORDERED: LIDOCAINE HCL 2% 2 ML VIAL (20MG/ML) ONE (10:19)
[2016-11-27] MEDS ORDERED: ONDANSETRON INJ 2 MG/ML 2 ML VIAL ONE (10:19)
[2016-11-27] MEDS ORDERED: CEFAZOLIN IV 2,000 MG/60 ML D5W IV ONE (10:45)
[2016-11-27] MEDS ORDERED: EpHEDrine SULFATE INJ 50 MG/ML AMP IV PRN (11:00)
[2016-11-27] MEDS ORDERED: ATROPINE SULFATE 0.1 MG/ML 5ML SYR IV PRN (11:00)
[2016-11-27] MEDS ORDERED: FENTANYL CITRATE INJ 50 MCG/1 ML 2 ML VIAL IV PRN (11:00)
[2016-11-27] MEDS ORDERED: ONDANSETRON INJ 2 MG/ML 2 ML VIAL IV PRN (11:00)
[2016-11-27] MEDS ORDERED: EpHEDrine SULFATE 50MG/5ML SYR ONE (11:46)
[2016-11-27] MEDS ORDERED: BACITRACIN 50000 UNIT VIAL IR ONE (12:00)
[2016-11-27] MEDS ORDERED: BUPIVACAINE 0.5 % 5 MG/1 ML MPF 30ML VIAL INJ ONE (12:13)
--- NOTE | 2016-11-27 12:42 | [facility] Post Operative Brief Note ---
Immediate Operative Summary Operative Date Nov 27, 2016. Pre-Operative Diagnosis Osteomyelitis first metatarsal and proximal phalanx great toe, abscess and gout of right foot Post-Operative Diagnosis Same Procedure(s) Performed Irrigation and debridement skin, fascia, bone of right foot first metatarsal and proximal phalanx great toe Surgeon Dr Quinn Outreach Manager Surgeon(s) None Estimated Blood Loss 5ML Findings See Dict Specimens None-prior Aer/Anaer/Gm stain collected Drains Iodoform gauze 1/2" x 3 Anesthesia GLMA w/ ankle block Complication(s) None Disposition Recovery Room / PACU
--- NOTE | 2016-11-27 13:06 | Anesthesiology Progress Note ---
Anesthesia Post Op Note Date & Time Nov 27, 2016 at 13:06 Vital Signs Pain Intensity: 1 Vital Signs Past 12 Hours Date Time Temp Pulse Resp B/P Pulse Ox O2 Delivery O2 Flow Rate FiO2 11/27/16 13:05 36.3 64 16 145/82 99 Nasal Cannula 2 11/27/16 12:55 36.3 61 16 135/75 96 Nasal Cannula 2 11/27/16 12:45 36.3 66 16 148/90 95 Room Air 11/27/16 12:35 36.3 63 16 133/88 99 Mask 10 11/27/16 12:26 36.3 63 16 146/85 97 Mask 10 11/27/16 07:53 36.8 60 16 145/87 96 Room Air 11/27/16 07:50 Room Air Notes Mental Status: alert / awake / arousable, participated in evaluation Pt Amnestic to Procedure: Yes Nausea / Vomiting: adequately controlled Pain: adequately controlled Airway Patency, RR, SpO2: stable & adequate BP & HR: stable & adequate Hydration State: stable & adequate Anesthetic Complications: no major complications apparent
--- NOTE | 2016-11-27 13:35 | OPERATIVE REPORT ---
DATE OF OPERATION: 11/27/2016 PREOPERATIVE DIAGNOSES: 1. Right foot osteomyelitis of the first metatarsal head. 2. Osteomyelitis, proximal phalanx of the great toe. 3. Abscess right foot. 4. Gout with tophaceous deposits. POSTOPERATIVE DIAGNOSIS: Same. PROCEDURE: Right foot irrigation and debridement including skin, fascia and bone of the first metatarsal and bone of the proximal phalanx. SURGEON: Dr. Quinn. DEPUTY GRAND JURY: None. ANESTHESIA: General LMA with ankle block. SPECIMENS: None. Prior specimens obtained upon previous washout. DRAINS: Iodoform gauze 1/2 inch x3. COMPLICATIONS: None. BLOOD LOSS: 5 mL. PERTINENT HISTORY: This is a 66-year-old gentleman with ongoing infection of his right foot. He has had multiple I\T\Ds of the right foot. He has shown some improvement from his last I\T\D and this was more extensive with debridement of bone and tenosynovectomy of the extensor hallucis longus. The patient has been on IV antibiotics; however, he did have some increased discharge and drainage from the right foot wound sites and was therefore scheduled for repeat irrigation and debridement as indicated. All potential risks, benefits, complications, alternatives, rehab, potential for incomplete relief of symptoms, need for further surgery, DVT, PE, , persistent pain, swelling, scarring, weakness, neurovascular injury, wound complications, possibility for further debridement and possibility of amputation were discussed with the patient. The patient decided to proceed with the procedure as indicated. PROCEDURE: The patient was taken to the operative suite, placed supine on the operating table. After review of the consent and identification of proper operative site, the patient was anesthetized, LMA was placed. Tourniquet was placed high on the right thigh over cast padding. Right lower extremity was then sterilely prepped and draped in the usual fashion, elevated and tourniquet inflated to 300 mmHg. Next, all sutures were removed from prior procedure. All incisions were then carefully opened with Metzenbaum scissors. There was noted to be some purulent discharge and drainage at each of the 3 separate sites. Also noted was chalky precipitate consistent with gouty tophi. Next, a rongeur was then used to debride the areas of gross tophaceous deposits and used to debride the surrounding skin, fascia and bone from the first metatarsal and bone of the proximal phalanx. Next, each of the 3 separate incisions medial, dorsal and the incision between the first and second metatarsal heads were all irrigated with pulsatile lavage with bacitracin 9 liters total fluid volume was utilized. After this was completed, new top gloves and top sheet was applied followed by implantation of iodoform gauze 1/2 inch wicked to each of the 3 separate incisions. Drains were left outside the skin. Skin was then closed loosely with interrupted 3-0 nylon sutures. Next, a sterile compressive forefoot dressing was applied overwrapped with an ABD and a Coban. Next an ankle block was performed with 30 mL of 0.5% Marcaine plain. Next, the dressing was overwrapped with an Peter wrap. The tourniquet was released. The patient was awakened and taken to recovery in stable condition. I attest to the content of the Intraoperative Record and any orders documented therein. Any exceptio ns are noted below.
[2016-11-27] MEDS: METFORMIN HCL 500 MG TABCR PO SCH (17:56)
[2016-11-27] MEDS: CEFTRIAXONE SOD INJ 2,000 MG in DEXTROSE 5% 50ML 50 ML IV SCH (19:05)
[2016-11-27] MEDS: SENNA 8.6 MG TAB PO SCH (20:38)
--- NOTE | 2016-11-27 22:50 | Progress Note ---
Medicine Progress Note Date & Time of Visit: Nov 27, 2016 at 15:40 . Subjective Doing well. No chest pain. No cough or dyspnea. No nausea or vomiting. No diarrhea. Postop pain well-controlled. . Objective Last 8 Hrs Date Time Temp Pulse Resp B/P Pulse Ox O2 Delivery O2 Flow Rate FiO2 11/27/16 20:00 37.0 63 18 139/76 93 Room Air 11/27/16 16:30 93 Room Air 11/27/16 16:15 36.9 59 18 136/63 93 Room Air 11/27/16 15:15 36.5 58 20 125/76 94 Room Air Physical Exam: General- no distress Lungs- clear Heart- RRR Abdomen- + BS, soft, nontender Extremities- right foot bandaged; no pretibial edema or calf tenderness Neuro- alert . Laboratory Results: Last 24 Hours Test 11/27/16 05:53 11/27/16 12:34 11/27/16 16:43 11/27/16 20:41 Bedside Glucose 111 mg/dl 105 mg/dl 152 mg/dl 150 mg/dl Assessment & Plan OSTEOMYELITIS / CELLULITIS RIGHT FOOT Surgical management per Ortho. Receiving IV ceftriaxone. CAD No anginal symptoms. Continue aspirin, bisoprolol. HYPERTENSION Continue bisoprolol and HCTZ. DM TYPE 2 Hgb A1C 6.3. Best to avoid metformin during acute illness. Insulin coverage as needed. FBS = 111 VTE PROPHYLAXIS Per Ortho. Consider SQ enoxaparin postop. Thank you for this consultation. We will follow the patient with you during their hospital stay. You [facility] via pager @ [phone]. You can reach me via cell @ [phone]. . Current Inpatient Medications: Current Inpatient Medications Medications (Trade) Dose Ordered Sig/Joey Route Start Time Stop Time Status Last Admin Dose Admin Oxycodone/ Acetaminophen (Percocet 5-325MG Tab) 1-2 TABLETS 1 TABLET ... Q6H PRN PO 11/18/16 17:15 12/02/16 17:14 11/25/16 09:20 2 TAB Magnesium Hydroxide (Milk Of Magnesia Susp) 30 ml Q6H PRN PO 11/18/16 17:15 12/18/16 17:14 Bisacodyl (Dulcolax Supp) 10 mg DAILY PRN AR 11/18/16 17:15 12/18/16 17:14 Sodium Biphosphate/ Sodium Phosphate (Fleet Enema) 132 ml DAILY PRN AR 11/18/16 17:15 12/18/16 17:14 Senna (Senokot Tab) 17.2 mg HS PO 11/18/16 21:00 12/18/16 20:59 11/27/16 20:38 17.2 MG Docusate Sodium (coLACE CAP) 100 mg BID PO 11/18/16 21:00 12/18/16 20:59 11/27/16 20:38 100 MG Diphenhydramine HCl (Benadryl Cap) 25 mg Q8H PRN PO 11/18/16 17:15 12/18/16 17:14 Al Hydrox/Mg Hydrox/Simethicone (Maalox Max Susp) 15 ml Q4H PRN PO 11/18/16 17:15 12/18/16 17:14 Zolpidem Tartrate (Ambien Tab) 5 mg HSZ PRN PO 11/18/16 17:15 12/18/16 17:14 Multivitamins (Multivitamin Tab) 1 tab QAM PO 11/19/16 09:00 12/19/16 08:59 11/27/16 08:25 1 TAB Ondansetron HCl (Zofran Inj) 4 mg Q6H PRN IV 11/18/16 17:15 12/18/16 17:14 Metoclopramide HCl (Reglan Inj) 10 mg Q6H PRN IV 11/18/16 17:15 12/18/16 17:14 Ferrous Gluconate (Ferrous Gluconate Tab) 324 mg TIDM PO 11/18/16 20:00 12/18/16 19:59 11/27/16 17:56 324 MG Pantoprazole Sodium (Protonix Tab) 40 mg QAM PO 11/19/16 09:00 12/19/16 08:59 11/27/16 08:24 40 MG Albuterol (Ventolin Hfa Inhaler) 2 puffs Q4H PRN INH 11/18/16 17:15 12/18/16 17:14 Aspirin (Ecotrin Tab) 81 mg DAILY PO 11/19/16 09:00 12/19/16 08:59 11/27/16 08:25 81 MG Metformin HCl (Glucophage Extended Rel Tab) 500 mg QDD PO 11/19/16 17:45 12/19/16 17:44 11/27/16 17:56 500 MG Nitroglycerin (Nitrostat Tab) 0.4 mg UD PRN SL 11/18/16 17:15 12/18/16 17:14 Ranitidine HCl (zANTac TAB) 150 mg BID PO 11/18/16 21:00 12/18/16 20:59 11/27/16 20:38 150 MG Calcium/Vitamin D (Caltrate Plus Tab) 1 tab DAILY PO 11/19/16 09:00 12/19/16 08:59 11/27/16 08:24 1 TAB Miscellaneous Information (Order Awaiting Action) 1 ea QS N/A 11/19/16 00:00 12/19/16 00:00 Hydrochlorothiazide (Hydrochlorothiazide Tab) 6.25 mg DAILY PO 11/19/16 09:00 12/19/16 08:59 11/27/16 08:25 6.25 MG Clonidine HCl (Catapres Tab) 0.1 mg Q6H PRN PO 11/18/16 21:45 12/18/16 21:44 11/18/16 22:00 0.1 MG Glucose (Glucose 40% Gel) 15-30 GRAMS 15 GRAMS... UD PRN PO 11/18/16 22:00 12/18/16 21:59 Glucose (Glucose Chew Tab) 4-8 Tablets 4 Tabl... UD PRN PO 11/18/16 22:00 12/18/16 21:59 Dextrose (Dextrose 50% 50ML Syringe) 25-50ML OF 50% DW IV FOR... UD PRN IV 11/18/16 22:00 12/18/16 21:59 Glucagon (Glucagon Inj) 1 mg UD PRN SQ 11/18/16 22:00 12/18/16 21:59 Diphenhydramine HCl (Benadryl Inj) 25 mg Q8H PRN IV 11/20/16 11:00 12/20/16 10:59 Heparin Sodium (Porcine) 5 ml 5 ml PRN PRN FLUSH 11/21/16 16:30 12/21/16 16:29 12/30/16 20:19 5 ML Ceftriaxone Sodium/Dextrose (Rocephin Inj/D5 50ml) 70 ml @ 100 mls/hr Q24H IV 11/22/16 19:00 12/02/16 18:59 11/27/16 19:05 100 MLS/HR Azelastine HCl (Astelin Nasal [place]) 2 sprays BID NA 11/24/16 21:00 12/24/16 20:59 11/27/16 20:38 2 SPRAYS Bisoprolol Fumarate (Bisoprolol Fumarate) 5 mg BID PO 11/24/16 21:00 12/24/16 20:59 11/27/16 20:39 5 MG Non-Formulary Medication (Non-Formulary Patient'S Own Med) 1 ea DAILY PO 11/25/16 09:00 12/25/16 08:59 11/27/16 08:27 1 EA Insulin Aspart (novoLOG ASPART) SLIDING SCALE If C... ACHS SC 11/27/16 17:15 12/27/16 17:14 11/27/16 18:01 2 UNITS
[2016-11-28 03:34] VITALS: BP 134/82; PULSE 64; TEMP 37.4; O2SAT 92
[2016-11-28] MEDS: OXYCODONE/ACETAMINOPHEN 5-325 TAB PO PRN (03:42)
[2016-11-28 07:29] VITALS: BP 124/74; PULSE 56; TEMP 36.9; O2SAT 96
[2016-11-28] MEDS: AZELASTINE HCL 30 ML INH SCH ×2 (09:25→20:54)
[2016-11-28] MEDS: ASPIRIN 81 MG ECTAB PO SCH (09:25)
[2016-11-28] MEDS: PANTOprazole SOD 40 MG TAB PO SCH (09:25)
[2016-11-28] MEDS: MULTIVITAMIN TAB PO SCH (09:25)
[2016-11-28] MEDS: CALCIUM 600MG + VIT D 400 IU TAB PO SCH (09:25)
[2016-11-28] MEDS: DOCUSATE SODIUM 100 MG CAP PO SCH ×2 (09:25→20:56)
[2016-11-28] MEDS: RANITIDINE HCL 150 MG TAB PO SCH ×2 (09:25→20:56)
[2016-11-28] MEDS: FERROUS GLUCONATE 324 MG TAB PO SCH ×3 (09:25→17:52)
[2016-11-28] MEDS: TRADJENTA 5 MG PO SCH (09:26)
[2016-11-28] MEDS: HYDROCHLOROTHIAZIDE 25 MG TAB PO SCH (09:26)
[2016-11-28] MEDS: BISOPROLOL FUMARATE 5 MG TAB PO SCH ×2 (09:26→20:57)
[2016-11-28] MEDS: INSULIN ASPART 100 UNITS/ML 3 ML PEN SC SCH ×4 (09:31→20:55)
--- NOTE | 2016-11-28 10:08 | PROGRESS NOTE ---
DATE: 11/28/2016 DATE: 11/28/2016. SUBJECTIVE: Francisco is seen postop day 1 from I\T\D of right foot. He is doing well. He denies any fever or chills. PHYSICAL EXAMINATION: Bandage is clean, dry and intact. He can flex and extend his toes. The toes are warm and well perfused. He has no evidence of ascending erythema. ASSESSMENT: 1. Postop day 1 I\T\D of osteomyelitis and cellulitis right foot. 2. Coronary artery disease. 3. Hypertension. 4. Diabetes type 2. PLAN: We will continue IV ceftriaxone. Will continue to monitor cultures. So far cultures have not shown any growth. Continue antibiotics, IV ceftriaxone, pending adjustment with cultures.
[2016-11-28 15:25] VITALS: BP 131/75; PULSE 65; TEMP 36.9; O2SAT 96
[2016-11-28] MEDS: CEFTRIAXONE SOD INJ 2,000 MG in DEXTROSE 5% 50ML 50 ML IV SCH (18:51)
[2016-11-28] MEDS: SENNA 8.6 MG TAB PO SCH (20:57)
--- NOTE | 2016-11-28 23:13 | Progress Note ---
Medicine Progress Note Date & Time of Visit: Nov 28, 2016 at 17:05 . Subjective Having some right foot pain, relieved by analgesics. No fever. No chest pain. No cough or SOB. No nausea, vomiting, diarrhea. . Objective Last 8 Hrs Date Time Temp Pulse Resp B/P Pulse Ox O2 Delivery O2 Flow Rate FiO2 11/28/16 15:30 Room Air 11/28/16 15:25 36.9 65 16 131/75 96 Room Air Physical Exam: General- lying in bed; no distress Lungs- clear to auscultation Heart- RRR, no gallop Abdomen- + BS, soft, nontender Extremities- right foot bandaged; no pretibial edema or calf tenderness Neuro- alert . Laboratory Results: Last 24 Hours Test 11/28/16 07:50 11/28/16 12:08 11/28/16 16:41 11/28/16 20:33 Bedside Glucose 105 mg/dl 113 mg/dl 115 mg/dl 163 mg/dl Assessment & Plan OSTEOMYELITIS / CELLULITIS RIGHT FOOT Surgical debridement, irrigation or fight first metatarsal and proximal phalanx performed 11/27. Cultures pending. Surgical management per Ortho. Receiving IV ceftriaxone. CAD No anginal symptoms. Continue aspirin, bisoprolol. HYPERTENSION Continue bisoprolol and HCTZ. DM TYPE 2 Hgb A1C 6.3. Best to avoid metformin during acute illness. Insulin coverage as needed. FBS = 105 VTE PROPHYLAXIS Per Ortho. Consider SQ enoxaparin postop. Thank you for this consultation. We will follow the patient with you during their hospital stay. You can reach a member of the [facility] 21/06 via pager @ [phone]. You can reach me via cell @ [phone]. Components of this document were electronically copied and updated from the last documentation created by the undersigned in order to maintain a complete, accurate, and current record. Any portion of this document created by another author, if any, will be attributed to them. I certify that the record accurately reflects the patient's current status and services provided on the date of service. . Current Inpatient Medications: Current Inpatient Medications Medications (Trade) Dose Ordered Sig/Joey Route Start Time Stop Time Status Last Admin Dose Admin Oxycodone/ Acetaminophen (Percocet 5-325MG Tab) 1-2 TABLETS 1 TABLET ... Q6H PRN PO 11/18/16 17:15 12/02/16 17:14 11/28/16 03:42 2 TAB Magnesium Hydroxide (Milk Of Magnesia Susp) 30 ml Q6H PRN PO 11/18/16 17:15 12/18/16 17:14 Bisacodyl (Dulcolax Supp) 10 mg DAILY PRN [place] 11/18/16 17:15 12/18/16 17:14 Sodium Biphosphate/ Sodium Phosphate (Fleet Enema) 132 ml DAILY PRN [place] 11/18/16 17:15 12/18/16 17:14 Senna (Senokot Tab) 17.2 mg HS PO 11/18/16 21:00 12/18/16 20:59 11/28/16 20:57 17.2 MG Docusate Sodium (coLACE CAP) 100 mg BID PO 11/18/16 21:00 12/18/16 20:59 11/28/16 20:56 100 MG Diphenhydramine HCl (Benadryl Cap) 25 mg Q8H PRN PO 11/18/16 17:15 12/18/16 17:14 Al Hydrox/Mg Hydrox/Simethicone (Maalox Max Susp) 15 ml Q4H PRN PO 11/18/16 17:15 12/18/16 17:14 Zolpidem Tartrate (Ambien Tab) 5 mg HSZ PRN PO 11/18/16 17:15 12/18/16 17:14 Multivitamins (Multivitamin Tab) 1 tab QAM PO 11/19/16 09:00 12/19/16 08:59 11/28/16 09:25 1 TAB Ondansetron HCl (Zofran Inj) 4 mg Q6H PRN IV 11/18/16 17:15 12/18/16 17:14 Metoclopramide HCl (Reglan Inj) 10 mg Q6H PRN IV 11/18/16 17:15 12/18/16 17:14 Ferrous Gluconate (Ferrous Gluconate Tab) 324 mg TIDM PO 11/18/16 20:00 12/18/16 19:59 11/28/16 17:52 324 MG Pantoprazole Sodium (Protonix Tab) 40 mg QAM PO 11/19/16 09:00 12/19/16 08:59 11/28/16 09:25 40 MG Albuterol (Ventolin Hfa Inhaler) 2 puffs Q4H PRN INH 11/18/16 17:15 12/18/16 17:14 Aspirin (Ecotrin Tab) 81 mg DAILY PO 11/19/16 09:00 12/19/16 08:59 11/28/16 09:25 81 MG Nitroglycerin (Nitrostat Tab) 0.4 mg UD PRN SL 11/18/16 17:15 12/18/16 17:14 Ranitidine HCl (zANTac TAB) 150 mg BID PO 11/18/16 21:00 12/18/16 20:59 11/28/16 20:56 150 MG Calcium/Vitamin D (Caltrate Plus Tab) 1 tab DAILY PO 11/19/16 09:00 12/19/16 08:59 11/28/16 09:25 1 TAB Miscellaneous Information (Order Awaiting Action) 1 ea QS N/A 11/19/16 00:00 12/19/16 00:00 Hydrochlorothiazide (Hydrochlorothiazide Tab) 6.25 mg DAILY PO 11/19/16 09:00 12/19/16 08:59 11/28/16 09:26 6.25 MG Clonidine HCl (Catapres Tab) 0.1 mg Q6H PRN PO 11/18/16 21:45 12/18/16 21:44 11/18/16 22:00 0.1 MG Glucose (Glucose 40% Gel) 15-30 GRAMS 15 GRAMS... UD PRN PO 11/18/16 22:00 12/18/16 21:59 Glucose (Glucose Chew Tab) 4-8 Tablets 4 Tabl... UD PRN PO 11/18/16 22:00 12/18/16 21:59 Dextrose (Dextrose 50% 50ML Syringe) 25-50ML OF 50% DW IV FOR... UD PRN IV 11/18/16 22:00 12/18/16 21:59 Glucagon (Glucagon Inj) 1 mg UD PRN SQ 11/18/16 22:00 12/18/16 21:59 Diphenhydramine HCl (Benadryl Inj) 25 mg Q8H PRN IV 11/20/16 11:00 12/20/16 10:59 Heparin Sodium (Porcine) 5 ml 5 ml PRN PRN FLUSH 11/21/16 16:30 12/21/16 16:29 11/28/16 13:55 5 ML Ceftriaxone Sodium/Dextrose (Rocephin Inj/D5 50ml) 70 ml @ 100 mls/hr Q24H IV 11/22/16 19:00 12/02/16 18:59 11/28/16 18:51 100 MLS/HR Azelastine HCl (Astelin Nasal [place]) 2 sprays BID NA 11/24/16 21:00 12/24/16 20:59 11/28/16 09:25 2 SPRAYS Bisoprolol Fumarate (Bisoprolol Fumarate) 5 mg BID PO 11/24/16 21:00 12/24/16 20:59 11/28/16 20:57 5 MG Non-Formulary Medication (Non-Formulary Patient'S Own Med) 1 ea DAILY PO 11/25/16 09:00 12/25/16 08:59 11/28/16 09:26 1 EA Insulin Aspart (novoLOG ASPART) SLIDING SCALE If C... ACHS SC 11/27/16 17:15 12/27/16 17:14 11/28/16 18:50 2 UNITS
[2016-11-28 23:33] VITALS: BP 125/78; PULSE 64; TEMP 36.8; O2SAT 93
[2016-11-29 07:20] VITALS: BP 144/88; PULSE 61; TEMP 36.9; O2SAT 96
--- NOTE | 2016-11-29 08:44 | Orthopedic Progress Note ---
Orthopedic Progress Note Date of Service Nov 29, 2016. Subjective Additional Notes: 48 yo wm with right foot infection. Pt has had 3 I&D's since admission the last being on Wednesday the 11/27/16. Pt states the foot has been feeling "ok" since the last I&D. Hoping to go home soon. All cultures have been NGTD. Objective calves soft nontender, capillary refill less than 2 sec., A&O x3, toes mobile Dressings removed. 3 strands of Iodiform pkg present. No overt drainage. Mild erythema noted around incisions. One strand of pkg completely removed. 6 " of pkg taken out from the 2 that remain. No overt drainage noted when pkg pulled. Pt tolerated removal well. Wounds redressed. Date Time Temp Pulse Resp B/P Pulse Ox O2 Delivery O2 Flow Rate FiO2 11/29/16 07:20 36.9 61 16 144/88 96 Room Air 11/29/16 00:15 Room Air 11/28/16 23:33 36.8 64 16 125/78 93 Room Air 11/28/16 15:30 Room Air 11/28/16 15:25 36.9 65 16 131/75 96 Room Air Assessment & Plan Assessment: POD #2 from the most recent washout of 3 here. Osteomyelitis first metatarsal and proximal phalanx s/p debridement Gout with Tophus deposition Plan: CONT IV ABX- Rocephin 2 grams daily -cultures negative to date. - Discussed case with ID (Dr Blunt) this AM. Will plan to keep patient on Rocephin for 2 weeks. - HAS PICC LINE - PAIN MANAGEMENT- On Percocet. Appears controlled. - Remove all pkg by tomorrow and plan for dc home tomorrow on IV antibx for 2 weeks. Inhouse Planning Pain Management: Percocet DVT Prophylaxis: ASA Discharge Planning Discharge Planning: uncertain
[2016-11-29] MEDS: AZELASTINE HCL 30 ML INH SCH ×2 (09:27→21:02)
[2016-11-29] MEDS: CALCIUM 600MG + VIT D 400 IU TAB PO SCH (09:28)
[2016-11-29] MEDS: RANITIDINE HCL 150 MG TAB PO SCH ×2 (09:29→21:02)
[2016-11-29] MEDS: DOCUSATE SODIUM 100 MG CAP PO SCH ×2 (09:29→21:02)
[2016-11-29] MEDS: HYDROCHLOROTHIAZIDE 25 MG TAB PO SCH (09:29)
[2016-11-29] MEDS: ASPIRIN 81 MG ECTAB PO SCH (09:30)
[2016-11-29] MEDS: PANTOprazole SOD 40 MG TAB PO SCH (09:30)
[2016-11-29] MEDS: FERROUS GLUCONATE 324 MG TAB PO SCH ×3 (09:30→18:09)
[2016-11-29] MEDS: MULTIVITAMIN TAB PO SCH (09:30)
[2016-11-29] MEDS: BISOPROLOL FUMARATE 5 MG TAB PO SCH ×2 (09:31→21:02)
[2016-11-29] MEDS: TRADJENTA 5 MG PO SCH (09:32)
[2016-11-29] MEDS ORDERED: CEFT1INJ57 IV (09:37)
[2016-11-29] MEDS ORDERED: HYDR-5688 PO (09:37)
[2016-11-29] MEDS: INSULIN ASPART 100 UNITS/ML 3 ML PEN SC SCH ×4 (09:44→21:00)
--- NOTE | 2016-11-29 09:44 | Discharge Instructions ---
Discharge Instructions Admission Reason for Admission: Right Foot Infected Wound Discharge Discharge Diagnosis / Problem: Right Foot Wound Infection Great Toe Discharge Goals Goal(s): Decrease discomfort, Improve function Activity Recommendations Activity Limitations: per Instructions/Follow-up section Weightbearing Status: Right weightbearing (on the heel only!) . Instructions / Follow-Up Instructions / Follow-Up ACTIVITY RECOMMENDATIONS: Limitations: Heel weight bearing only if able to tolerate. SPECIAL CARE INSTRUCTIONS: * Some drainage onto the dressing is normal and is no cause for alarm. Change dressing daily. * Some swelling is natural especially after walking. * When resting, keep your foot elevated above the level of your heart. * Call [facility] if you notice: -Increased drainage -Fever over 101 degrees F -Severe constant pain BANDAGE: * Change dressing daily. FOLLOW UP VISIT WITH DR. MURRAY (OR DR MARTINEZ) If appointment is not already scheduled: Please call [facility] after you get home today to schedule a follow-up appointment for 7-[address] Murray/Kai at . FOLLOW UP WITH DR VALDOVINOS (INFECTIOUS DISEASE) IN 7-10 DAYS. CALL FOR APPT. [phone] Current Hospital Diet Patient's current hospital diet: Diabetes Type 2 Diet Discharge Diet Recommended Diet: Diabetes Type 2 Diet Procedures Procedures Performed: Irrigation and debridement skin, fascia, bone of right foot first metatarsal and proximal phalanx great toe Pending Studies Studies pending at discharge: yes List of pending studies: BACTERIAL CULTURES FROM MOST RECENT WASHOUT PENDING... Laboratory Results Hemoglobin A1c Test 11/19/16 06:40 Range/Units Estimated Average Glucose 134 mg/dl Hemoglobin A1c 6.3 H 4.5-5.6 % Medical Emergencies . Who to Call and When: Medical Emergencies: If at any time you feel your situation is an emergency, please call 911 immediately. . Non-Emergent Contact Non-Emergency issues call your: Surgeon Call Non-Emergent contact if: temperature is above 101.5, your pain is worsening, wound has increased drainage, wound has increased redness . "Provider Documentation" section prepared by Wilbert Mcknight. VTE Core Measure Inpt VTE Proph given/why not?: Other Anticoagulation
[2016-11-29] MEDS: OXYCODONE/ACETAMINOPHEN 5-325 TAB PO PRN (11:14)
[2016-11-29] MEDS ORDERED: ASPI81TA28 PO (11:39)
[2016-11-29 14:59] VITALS: BP 112/72; PULSE 75; TEMP 36.7; O2SAT 96
[2016-11-29 16:30] VITALS: O2SAT 96
[2016-11-29] MEDS: CEFTRIAXONE SOD INJ 2,000 MG in DEXTROSE 5% 50ML 50 ML IV SCH (18:41)
--- NOTE | 2016-11-29 20:50 | Progress Note ---
Medicine Progress Note Date & Time of Visit: Nov 29, 2016 at 11:10 . Subjective No fever. No chest pain, cough, SOB. No nausea, vomiting, diarrhea. Less foot pain. . Objective Last 8 Hrs Date Time Temp Pulse Resp B/P Pulse Ox O2 Delivery O2 Flow Rate FiO2 11/29/16 16:30 96 Room Air 11/29/16 14:59 36.7 75 16 112/72 96 Room Air Physical Exam: General- no distress Lungs- clear Heart- RRR, no gallop Abdomen- + BS, soft, nontender Extremities- right foot bandaged; no pretibial edema or calf tenderness Neuro- alert . Laboratory Results: Last 24 Hours Test 11/29/16 07:17 11/29/16 11:29 11/29/16 16:38 Bedside Glucose 107 mg/dl 197 mg/dl 142 mg/dl Assessment & Plan OSTEOMYELITIS / CELLULITIS RIGHT FOOT Surgical debridement, irrigation or fight first metatarsal and proximal phalanx performed 11/27. Cultures pending. Surgical management per Ortho. Receiving IV ceftriaxone- duration per ID. CAD No anginal symptoms. Continue aspirin, bisoprolol. HYPERTENSION Continue bisoprolol and HCTZ. DM TYPE 2 Hgb A1C 6.3. Best to avoid metformin during acute illness. Insulin coverage as needed. FBS = 107. Resume usual routine at time of discharge. VTE PROPHYLAXIS Per Ortho. Thank you for this consultation. We will follow the patient with you during their hospital stay. You can reach a member of the [facility] via pager @ . You can reach me via cell @ [phone]. Components of this document were electronically copied and updated from the last documentation created by the undersigned in order to maintain a complete, accurate, and current record. Any portion of this document created by another author, if any, will be attributed to them. I certify that the record accurately reflects the patient's current status and services provided on the date of service. . Current Inpatient Medications: Current Inpatient Medications Medications (Trade) Dose Ordered Sig/Joey Route Start Time Stop Time Status Last Admin Dose Admin Oxycodone/ Acetaminophen (Percocet 5-325MG Tab) 1-2 TABLETS 1 TABLET ... Q6H PRN PO 11/18/16 17:15 12/02/16 17:14 11/29/16 11:14 1 TAB Magnesium Hydroxide (Milk Of Magnesia Susp) 30 ml Q6H PRN PO 11/18/16 17:15 12/18/16 17:14 Bisacodyl (Dulcolax Supp) 10 mg DAILY PRN [place] 11/18/16 17:15 12/18/16 17:14 Sodium Biphosphate/ Sodium Phosphate (Fleet Enema) 132 ml DAILY PRN [place] 11/18/16 17:15 12/18/16 17:14 Senna (Senokot Tab) 17.2 mg HS PO 11/18/16 21:00 12/18/16 20:59 11/28/16 20:57 17.2 MG Docusate Sodium (coLACE CAP) 100 mg BID PO 11/18/16 21:00 12/18/16 20:59 11/29/16 09:29 100 MG Diphenhydramine HCl (Benadryl Cap) 25 mg Q8H PRN PO 11/18/16 17:15 12/18/16 17:14 Al Hydrox/Mg Hydrox/Simethicone (Maalox Max Susp) 15 ml Q4H PRN PO 11/18/16 17:15 12/18/16 17:14 Zolpidem Tartrate (Ambien Tab) 5 mg HSZ PRN PO 11/18/16 17:15 12/18/16 17:14 Multivitamins (Multivitamin Tab) 1 tab QAM PO 11/19/16 09:00 12/19/16 08:59 11/29/16 09:30 1 TAB Ondansetron HCl (Zofran Inj) 4 mg Q6H PRN IV 11/18/16 17:15 12/18/16 17:14 Metoclopramide HCl (Reglan Inj) 10 mg Q6H PRN IV 11/18/16 17:15 12/18/16 17:14 Ferrous Gluconate (Ferrous Gluconate Tab) 324 mg TIDM PO 11/18/16 20:00 12/18/16 19:59 11/29/16 18:09 324 MG Pantoprazole Sodium (Protonix Tab) 40 mg QAM PO 11/19/16 09:00 12/19/16 08:59 11/29/16 09:30 40 MG Albuterol (Ventolin Hfa Inhaler) 2 puffs Q4H PRN INH 11/18/16 17:15 12/18/16 17:14 Aspirin (Ecotrin Tab) 81 mg DAILY PO 11/19/16 09:00 12/19/16 08:59 11/29/16 09:30 81 MG Nitroglycerin (Nitrostat Tab) 0.4 mg UD PRN SL 11/18/16 17:15 12/18/16 17:14 Ranitidine HCl (zANTac TAB) 150 mg BID PO 11/18/16 21:00 12/18/16 20:59 11/29/16 09:29 150 MG Calcium/Vitamin D (Caltrate Plus Tab) 1 tab DAILY PO 11/19/16 09:00 12/19/16 08:59 11/29/16 09:28 1 TAB Miscellaneous Information (Order Awaiting Action) 1 ea QS N/A 11/19/16 00:00 12/19/16 00:00 Hydrochlorothiazide (Hydrochlorothiazide Tab) 6.25 mg DAILY PO 11/19/16 09:00 12/19/16 08:59 11/29/16 09:29 6.25 MG Clonidine HCl (Catapres Tab) 0.1 mg Q6H PRN PO 11/18/16 21:45 12/18/16 21:44 11/18/16 22:00 0.1 MG Glucose (Glucose 40% Gel) 15-30 GRAMS 15 GRAMS... UD PRN PO 11/18/16 22:00 12/18/16 21:59 Glucose (Glucose Chew Tab) 4-8 Tablets 4 Tabl... UD PRN PO 11/18/16 22:00 12/18/16 21:59 Dextrose (Dextrose 50% 50ML Syringe) 25-50ML OF 50% DW IV FOR... UD PRN IV 11/18/16 22:00 12/18/16 21:59 Glucagon (Glucagon Inj) 1 mg UD PRN SQ 11/18/16 22:00 12/18/16 21:59 Diphenhydramine HCl (Benadryl Inj) 25 mg Q8H PRN IV 11/20/16 11:00 12/20/16 10:59 Heparin Sodium (Porcine) 5 ml 5 ml PRN PRN FLUSH 11/21/16 16:30 12/21/16 16:29 11/29/16 19:41 5 ML Ceftriaxone Sodium/Dextrose (Rocephin Inj/D5 50ml) 70 ml @ 100 mls/hr Q24H IV 11/22/16 19:00 12/02/16 18:59 11/29/16 18:41 100 MLS/HR Azelastine HCl (Astelin Nasal [place]) 2 sprays BID NA 11/24/16 21:00 12/24/16 20:59 11/29/16 09:27 2 SPRAYS Bisoprolol Fumarate (Bisoprolol Fumarate) 5 mg BID PO 11/24/16 21:00 12/24/16 20:59 11/29/16 09:31 5 MG Non-Formulary Medication (Non-Formulary Patient'S Own Med) 1 ea DAILY PO 11/25/16 09:00 12/25/16 08:59 11/29/16 09:32 1 EA Insulin Aspart (novoLOG ASPART) SLIDING SCALE If C... ACHS SC 11/27/16 17:15 12/27/16 17:14 11/29/16 18:14 3 UNITS
[2016-11-29] MEDS: SENNA 8.6 MG TAB PO SCH (21:02)
[2016-11-29 22:55] VITALS: BP 127/74; PULSE 64; TEMP 36.8; O2SAT 93
[2016-11-30] MEDS: OXYCODONE/ACETAMINOPHEN 5-325 TAB PO PRN ×2 (04:43→11:59)
--- NOTE | 2016-11-30 06:47 | Orthopedic Progress Note ---
Orthopedic Progress Note Date of Service Nov 30, 2016. Subjective Post OP Day: 3 Reports: feeling well, Denies: complaints Objective calves soft nontender, N/V intact, capillary refill less than 2 sec., A&O x3, toes mobile Remainder of packing removed. Wounds continue to improve. Less erythema. Less swelling and drainage. Mild serous drainage from the middle dorsal incision after pkg removed. Wound redressed. Date Time Temp Pulse Resp B/P Pulse Ox O2 Delivery O2 Flow Rate FiO2 11/29/16 23:50 Room Air 11/29/16 22:55 36.8 64 14 127/74 93 Room Air 11/29/16 16:30 96 Room Air 11/29/16 14:59 36.7 75 16 112/72 96 Room Air 11/29/16 08:00 Room Air 11/29/16 07:20 36.9 61 16 144/88 96 Room Air Assessment & Plan Assessment: POD #3 from the most recent washout of 3 here. Osteomyelitis first metatarsal and proximal phalanx s/p debridement Gout with Tophus deposition Plan: CONT IV ABX- Rocephin 2 grams daily -cultures all negative (finals). - Discussed case with ID (Dr Blunt) . Will plan to keep patient on Rocephin for 2 weeks. - HAS PICC LINE - PAIN MANAGEMENT- On Percocet. Appears controlled. - Plan for dc home today on IV antibx for 2 weeks. Inhouse Planning Pain Management: Percocet DVT Prophylaxis: ASA Discharge Planning Discharge Planning: uncertain
[2016-11-30 07:10] VITALS: BP 126/78; PULSE 57; TEMP 36.7; O2SAT 96
[2016-11-30] MEDS: FERROUS GLUCONATE 324 MG TAB PO SCH ×2 (08:57→12:59)
[2016-11-30] MEDS: ASPIRIN 81 MG ECTAB PO SCH (08:57)
[2016-11-30] MEDS: DOCUSATE SODIUM 100 MG CAP PO SCH (08:57)
[2016-11-30] MEDS: HYDROCHLOROTHIAZIDE 25 MG TAB PO SCH (09:00)
[2016-11-30] MEDS: RANITIDINE HCL 150 MG TAB PO SCH (09:00)
[2016-11-30] MEDS: MULTIVITAMIN TAB PO SCH (09:00)
[2016-11-30] MEDS: CALCIUM 600MG + VIT D 400 IU TAB PO SCH (09:00)
[2016-11-30] MEDS: PANTOprazole SOD 40 MG TAB PO SCH (09:00)
[2016-11-30] MEDS: AZELASTINE HCL 30 ML INH SCH (09:01)
[2016-11-30] MEDS: TRADJENTA 5 MG PO SCH (09:02)
[2016-11-30] MEDS: BISOPROLOL FUMARATE 5 MG TAB PO SCH (09:02)
[2016-11-30] MEDS: INSULIN ASPART 100 UNITS/ML 3 ML PEN SC SCH ×2 (09:08→13:03)
[2016-11-30 10:30] VITALS: BP 126/78; PULSE 57; TEMP 36.7; O2SAT 96
--- NOTE | 2016-11-30 13:18 | Infectious Disease Progress Nt ---
Progress Note Date of Service Nov 30, 2016. Subjective Pt evaluation today including: conversation w/ patient, physical exam, chart review, lab review, review of studies, conversation w/ environmental consultant, review of inpatient medication list Recent events reviewed and discussed with Orthopedic Service. Patient status post several debridements, with finding of infection as well as gouty deposits. Currently on IV ceftriaxone and tolerating well. Surgical wound appears to be healing reasonably well. No further intervention planned at present time. Remains afebrile. All Other Systems: Reviewed and Negative Medications Current Inpatient Medications Medications (Trade) Dose Ordered Sig/Joey Route Start Time Stop Time Status Last Admin Dose Admin Oxycodone/ Acetaminophen (Percocet 5-325MG Tab) 1-2 TABLETS 1 TABLET ... Q6H PRN PO 11/18/16 17:15 12/02/16 17:14 11/30/16 11:59 1 TAB Magnesium Hydroxide (Milk Of Magnesia Susp) 30 ml Q6H PRN PO 11/18/16 17:15 12/18/16 17:14 Bisacodyl (Dulcolax Supp) 10 mg DAILY PRN HI 11/18/16 17:15 12/18/16 17:14 Sodium Biphosphate/ Sodium Phosphate (Fleet Enema) 132 ml DAILY PRN HI 11/18/16 17:15 12/18/16 17:14 Senna (Senokot Tab) 17.2 mg HS PO 11/18/16 21:00 12/18/16 20:59 11/29/16 21:02 17.2 MG Docusate Sodium (coLACE CAP) 100 mg BID PO 11/18/16 21:00 12/18/16 20:59 11/30/16 08:57 100 MG Diphenhydramine HCl (Benadryl Cap) 25 mg Q8H PRN PO 11/18/16 17:15 12/18/16 17:14 Al Hydrox/Mg Hydrox/Simethicone (Maalox Max Susp) 15 ml Q4H PRN PO 11/18/16 17:15 12/18/16 17:14 Zolpidem Tartrate (Ambien Tab) 5 mg HSZ PRN PO 11/18/16 17:15 12/18/16 17:14 Multivitamins (Multivitamin Tab) 1 tab QAM PO 11/19/16 09:00 12/19/16 08:59 11/30/16 09:00 1 TAB Ondansetron HCl (Zofran Inj) 4 mg Q6H PRN IV 11/18/16 17:15 12/18/16 17:14 Metoclopramide HCl (Reglan Inj) 10 mg Q6H PRN IV 11/18/16 17:15 12/18/16 17:14 Ferrous Gluconate (Ferrous Gluconate Tab) 324 mg TIDM PO 11/18/16 20:00 12/18/16 19:59 11/30/16 12:59 324 MG Pantoprazole Sodium (Protonix Tab) 40 mg QAM PO 11/19/16 09:00 12/19/16 08:59 11/30/16 09:00 40 MG Albuterol (Ventolin Hfa Inhaler) 2 puffs Q4H PRN INH 11/18/16 17:15 12/18/16 17:14 Aspirin (Ecotrin Tab) 81 mg DAILY PO 11/19/16 09:00 12/19/16 08:59 11/30/16 08:57 81 MG Nitroglycerin (Nitrostat Tab) 0.4 mg UD PRN SL 11/18/16 17:15 12/18/16 17:14 Ranitidine HCl (zANTac TAB) 150 mg BID PO 11/18/16 21:00 12/18/16 20:59 11/30/16 09:00 150 MG Calcium/Vitamin D (Caltrate Plus Tab) 1 tab DAILY PO 11/19/16 09:00 12/19/16 08:59 11/30/16 09:00 1 TAB Miscellaneous Information (Order Awaiting Action) 1 ea QS N/A 11/19/16 00:00 12/19/16 00:00 Hydrochlorothiazide (Hydrochlorothiazide Tab) 6.25 mg DAILY PO 11/19/16 09:00 12/19/16 08:59 11/30/16 09:00 6.25 MG Clonidine HCl (Catapres Tab) 0.1 mg Q6H PRN PO 11/18/16 21:45 12/18/16 21:44 11/18/16 22:00 0.1 MG Glucose (Glucose 40% Gel) 15-30 GRAMS 15 GRAMS... UD PRN PO 11/18/16 22:00 12/18/16 21:59 Glucose (Glucose Chew Tab) 4-8 Tablets 4 Tabl... UD PRN PO 11/18/16 22:00 12/18/16 21:59 Dextrose (Dextrose 50% 50ML Syringe) 25-50ML OF 50% DW IV FOR... UD PRN IV 11/18/16 22:00 12/18/16 21:59 Glucagon (Glucagon Inj) 1 mg UD PRN SQ 11/18/16 22:00 12/18/16 21:59 Diphenhydramine HCl (Benadryl Inj) 25 mg Q8H PRN IV 11/20/16 11:00 12/20/16 10:59 Heparin Sodium (Porcine) 5 ml 5 ml PRN PRN FLUSH 11/21/16 16:30 12/21/16 16:29 11/30/16 08:11 5 ML Ceftriaxone Sodium/Dextrose (Rocephin Inj/D5 50ml) 70 ml @ 100 mls/hr Q24H IV 11/22/16 19:00 12/02/16 18:59 11/29/16 18:41 100 MLS/HR Azelastine HCl (Astelin Nasal [place]) 2 sprays BID NA 11/24/16 21:00 12/24/16 20:59 11/30/16 09:01 2 SPRAYS Bisoprolol Fumarate (Bisoprolol Fumarate) 5 mg BID PO 11/24/16 21:00 12/24/16 20:59 11/30/16 09:02 5 MG Non-Formulary Medication (Non-Formulary Patient'S Own Med) 1 ea DAILY PO 11/25/16 09:00 12/25/16 08:59 11/30/16 09:02 1 EA Insulin Aspart (novoLOG ASPART) SLIDING SCALE If C... ACHS SC 11/27/16 17:15 12/27/16 17:14 11/30/16 13:03 3 UNITS Objective Vital Signs Date Time Temp Pulse Resp B/P Pulse Ox O2 Delivery O2 Flow Rate FiO2 11/30/16 10:30 36.7 57 15 96 Room Air 11/30/16 07:56 Room Air 11/30/16 07:10 36.7 57 15 126/78 96 Room Air 11/29/16 23:50 Room Air 11/29/16 22:55 36.8 64 14 127/74 93 Room Air 11/29/16 16:30 96 Room Air 11/29/16 14:59 36.7 75 16 112/72 96 Room Air Physical Exam General Appearance: WD/WN, no apparent distress Eyes: normal inspection, sclerae normal ENT: normal ENT inspection, pharynx normal Neck: supple, no adenopathy, trachea midline Respiratory/Chest: chest non-tender, lungs clear, normal breath sounds, no respiratory distress Cardiovascular: regular rate, rhythm, no gallop, no murmur Abdomen: normal bowel sounds, non tender, soft, no organomegaly Extremities: no calf tenderness, normal capillary refill Neurologic/Psychiatric: alert, oriented x 3 Skin: normal color, no rash, + pertinent finding (Surgical site clean) Lymphatic: no adenopathy Laboratory Results RUN DATE: 11/29/16 [facility] PAGE 1 RUN TIME: 1243 Specimen Inquiry PATIENT: EAN FLORES LOC: [facility] U # : [id number] AGE/SX: 66/M ROOM: [facility] REG : 11/18/[address]: Anton Murray,D.OSweetie : 1950 BED: 1 DIS : STATUS: ADM IN TLOC: SPEC #: [id number] [place]: 11/24/16-1644 STATUS: COMP REQ #: [id number] RECD: 11/24/[address]: Anton Murray DSweetieO. SOURCE: DRAIN-DEEP ENTR: 11/24/[address] [facility] [address]: Joshua Blunt MD [facility]: FOOT RIGHT Panlilio, Eleuterio Gibbs , Ozzy Wu D.O. ORDERED: AER/VERONICA CULTSMR Procedure Result Verified Site GRAM STAIN Final 11/25/16 RESULT MODERATE WBCs SEEN NO ORGANISMS SEEN OR AER/VERONICA CULT Final 11/29/16-124 NO GROWTH Last 24 Hours Test 11/29/16 16:38 11/29/16 20:41 11/30/16 07:27 11/30/16 12:00 Bedside Glucose 142 mg/dl 131 mg/dl 123 mg/dl 224 mg/dl Assessment and Plan Right foot infection following bunion surgery, with culture positive for Streptococcus, now status post multiple debridements with finding of tophaceous gout as well as infection. Patient to continue on ceftriaxone as discussed for at least 2 more weeks. We will see in the office prior to discontinuation of antibiotics.
--- NOTE | 2016-11-30 13:23 | Anesthesiology Progress Note ---
Anesthesia Post Op Note Date & Time Nov 30, 2016 at 13:23 Vital Signs Pain Intensity: 5.0 Vital Signs Past 12 Hours Date Time Temp Pulse Resp B/P Pulse Ox O2 Delivery O2 Flow Rate FiO2 11/30/16 10:30 36.7 57 15 96 Room Air 11/30/16 07:56 Room Air 11/30/16 07:10 36.7 57 15 126/78 96 Room Air Notes Mental Status: alert / awake / arousable, participated in evaluation Anesthetic Complications: no major complications apparent
[2016-11-30 15:20] VITALS: BP 122/78; PULSE 61; TEMP 36.9; O2SAT 95
[2016-11-30] MEDS: CEFTRIAXONE SOD INJ 2,000 MG in DEXTROSE 5% 50ML 50 ML IV SCH (15:32)
--- NOTE | 2016-11-30 19:20 | Discharge Summary ---
Orthopedic Discharge Summary Admission Date/Reason Nov 18, 2016 at 17:20 Right Foot Infected Wound. Discharge Date/Disposition Nov 30, 2016 Home with services Diagnosis Principal Diagnosis: s/p I&D on 11/18/[address] collier, 11/24/16 and repeat on 11/27/[address] jackson. 1. Right foot osteomyelitis of the first metatarsal head. 2. Osteomyelitis, proximal phalanx of the great toe. 3. Abscess right foot. 4. Gout with tophaceous deposits Procedure(s) Performed as noted above Consultations Dr Blunt- Infectious Disease Dr Hernandez- Medical Management Medication Reconciliation New Medications: Ceftriaxone Sod (Rocephin) 1 Gm Inj 2 GM IV DAILY for 14 Days, VIAL Changed Medications: Aspirin (Aspirin Ec) 81 Mg Tab 81 MG PO BID for 30 Days (Changed from: DAILY) after 30 days, you may resume your once daily dosing of the aspirin. Continued Medications: Albuterol Sulfate (Proventil Hfa) 108 Mcg/Act Aer 2 PUFFS INH Q4 PRN for SOB/Wheezing Azelastine Hcl-Fluticasone Pro (Dymista) 1 Spr Spr 2 SPRY HUGO BID PRN for Nasal Congestion for 30 Days, #23 GM 6 Refills Bisoprolol/Hctz (Ziac 10MG/6.25MG) Tab 1 TAB PO DAILY, TAB Calcium Carbonate-Vitamin D (Calcium 600 + D) 1 Tab Tab 1 TAB PO DAILY Fish Oil ([place]-3) 1 Ea Cap 1 CAP PO DAILY, CAP Fluorouracil (Topical) (Efudex) 5 % Cre 1 APPLN TOP WK for 14 Days, #40 GM APPLY ONCE A WEEK, THEN OFF A WEEK Hydrocodone/Acetaminophen 5MG/325MG ([place] 5MG/325MG) Tab 1-2 TAB PO Q4-6 PRN for Pain for 30 Days, #60 TAB (This prescription has been renewed) PRN PAIN Linagliptin (Tradjenta) 5 Mg Tab 1 TAB PO DAILY for 90 Days, #90 TAB 1 Refill Magnesium Oxide (Mag-Ox) 400 Mg Tab 400 MG PO, TAB Metformin Hcl Er (Glucophage Er) 500 Mg Tab 1 TAB PO QPM for 90 Days, TAB 3 Refills Nitroglycerin (Nitrostat) 0.4 Mg Tab 1 TAB SL UD PRN for Chest Pain, #100 TAB 3 Refills Ranitidine Hcl (Zantac) 150 Mg Tab 1 TAB PO BID for 90 Days, #180 TAB 3 Refills Vitamins W/ Lipotropics (Lipoflavonoid) 1 Tab Tab 1 TAB PO DAILY Discontinued Medications: Naproxen (Naprosyn) 500 Mg Tab 500 MG PO BID PRN for Pain, TAB Admission Physical Exam As per Admitting History & Physical. Hospital Course Patient was admitted on 11/18/16 and underwent I&D of his foot wound s/p foot surgery by dr collier. He initially had a wound vac placed after this first I&D. On pod #1, it was noted to have increased purulent drainage outside around the wound vac. It was then decided to have a repeat I&D performed on 11/24/[address] jackson, who then placed deep packing inside the wounds. each day a little more packing was removed, due to the nature of the infection and his course post op, it was decided to repeat I&D on 11/27/16. Please refer to daily progress notes for complete details. After the most recent I&D, packing was again slowly removed over the next 3 days. He also has a PICC line placed and will be discharged on IV Rocephin for at least 2 weeks post op. He will at that point follow up with dr blunt as well as dr collier prior to discontinuing the antibiotics. after exam on 11/30/16, patient felt stable for discharge home. Discharge Instructions Please refer to the electronic Patient Visit Report (Discharge Instructions) for additional information.
--- NOTE | 2016-12-02 14:06 | EDITING REQUIRED CODING QUERY ---
CODING QUERY To promote full compliance with coding requirements relating to patient care, provider participation is requested in all cases of electronic systems technician uncertainty. Please assist us with the question(s) below: Dear Dr. Lambert, Medical coders are not allowed to code using the abbreviation "ODESSA" as it isn't recognized as an official abbreviation. Please clarify below: ODESSA ( + ) Acute Renal Failure ( ) Acute Renal Insufficiency ( ) Other: Please explain ( ) Unable to determine Medical documentation from Progress Note: ODESSA- Resolving Creatinine bumped up to 1.60 yesterday--> back to 1.30 today -Started IV NS at 75 cc/hour yesterday--> OK to discontinue. Encourage PO fluids -Monitor Coding Question(s): Physician's Response(s): Thank you for your time. Carla Fisher [facility] Principal Diagnosis: "_that condition established after study, to be chiefly responsible for occasioning the admission of the patient to the hospital for care." Co-Existing Principal Diagnosis: "_when two or more diagnoses equally meet the criteria for principal diagnosis as determined by the circumstances of admission, diagnostic work up, and/or therapy provided, and the Alphabetic Index, Tabular List, or another coding guideline does not provide sequencing direction, any one of the diagnoses may be sequenced first." "When the physician has documented what appears to be a current diagnosis in the body of the record, but has not included the diagnosis in the final diagnostic statement, the physician should be asked whether the diagnosis should be added." (Source Coding [facility] 2 QTR90. p3-4)
== END 2016-11-30 17:00 | disposition home health service (06) | DRG 857 ==
LOC: ENRESERVDT → ENRESERVTM → C.ACU 15:35 → C.MSW 17:20
PROVIDERS: ADMIT Orthopaedic Surgery; ATTEND Orthopaedic Surgery
PROC: 0JDQ0ZZ Extraction of Right Foot Subcutaneous Tissue and Fascia, Open Approach (ICD-10-PCS; 2016-11-20)
PROC: 02HV33Z Insertion of Infusion Device into Superior Vena Cava, Percutaneous Approach (ICD-10-PCS; principal; 2016-11-20 09:15)
PROC: 0LBV0ZZ Excision of Right Foot Tendon, Open Approach (ICD-10-PCS; 2016-11-24)
PROC: 0SBM0ZZ Excision of Right Metatarsal-Phalangeal Joint, Open Approach (ICD-10-PCS; 2016-11-24)
PROC: 0J9Q0ZZ Drainage of Right Foot Subcutaneous Tissue and Fascia, Open Approach (ICD-10-PCS; 2016-11-24)
PROC: 0JDQ0ZZ Extraction of Right Foot Subcutaneous Tissue and Fascia, Open Approach (ICD-10-PCS; 2016-11-24)
PROC: 0QBQ0ZZ Excision of Right Toe Phalanx, Open Approach (ICD-10-PCS; 2016-11-24)
PROC: 0QBN0ZZ Excision of Right Metatarsal, Open Approach (ICD-10-PCS; 2016-11-24)
PROC: 0QBN0ZZ Excision of Right Metatarsal, Open Approach (ICD-10-PCS; 2016-11-27)
PROC: 0QBQ0ZZ Excision of Right Toe Phalanx, Open Approach (ICD-10-PCS; 2016-11-27)
PROC: 0JDQ0ZZ Extraction of Right Foot Subcutaneous Tissue and Fascia, Open Approach (ICD-10-PCS; 2016-11-27)
DX: T81.4XXA Infection following a procedure, initial encounter (principal); L03.115 Cellulitis of right lower limb; M86.171 Other acute osteomyelitis, right ankle and foot; L02.611 Cutaneous abscess of right foot; N17.9 Acute kidney failure, unspecified; M86.8X0 Other osteomyelitis, multiple sites; E78.5 Hyperlipidemia, unspecified; K21.9 Gastro-esophageal reflux disease without esophagitis; B95.1 Streptococcus, group B, as the cause of diseases classified elsewhere; I25.10 Atherosclerotic heart disease of native coronary artery without angina pectoris; M06.9 Rheumatoid arthritis, unspecified; Z95.1 Presence of aortocoronary bypass graft; M1A.9XX1 Chronic gout, unspecified, with tophus (tophi); I10 Essential (primary) hypertension; E78.00 Pure hypercholesterolemia, unspecified; E11.9 Type 2 diabetes mellitus without complications; E66.9 Obesity, unspecified; Z68.24 Body mass index [BMI] 24.0-24.9, adult; J45.909 Unspecified asthma, uncomplicated; I25.2 Old myocardial infarction; M54.5 Low back pain; I45.10 Unspecified right bundle-branch block; Z79.82 Long term (current) use of aspirin; Z79.4 Long term (current) use of insulin; Z79.1 Long term (current) use of non-steroidal anti-inflammatories (NSAID); Z79.899 Other long term (current) drug therapy; Y83.8 Other surgical procedures as the cause of abnormal reaction of the patient, or of later complication, without mention of misadventure at the time of the procedure